=== PATIENT | female | born 1970 | race Caucasian/White ===

== ENCOUNTER 2019-12-12 07:33 | Outpatient (REF) | payer OTHER, SELFPAY ==
--- NOTE | 2019-12-12 | MM_ITS ---
EXAMINATION: MM DIAGNOSTIC DIGITAL BREAST TOMOSYNTHESIS, BILATERAL CLINICAL INFORMATION: Due for yearly. Probable benign nodule posterior medial right breast for follow-up. The lifetime risk of breast cancer based on the Tyrer-Cuzick Model is 8%. COMPARISON: Mammography: 06/12/2019, 11/23/2018, 10/24/2018 (BI-RADS 0), 04/17/2015; targeted right breast ultrasound 11/23/2018 TECHNIQUE: Digital breast tomosynthesis is performed in both the craniocaudal and mediolateral oblique views along with computer-aided detection (CAD). Synthesized 2D images are generated from the tomosynthesis. Additional views are provided: Left cleavage, left MLO. FINDINGS: The breasts are almost entirely fatty (ACR BI-RADS breast composition Category a). There are no significant masses, abnormal calcifications, or other abnormalities. There is no interval mass or developing density. The nodule for follow-up posterior medial right breast is stable. They will be reassessed again at next bilateral annual mammography include long-term surveillance. There are bilateral nipple piercings. The axilla and skin contours are unremarkable. Results are provided to the patient at time of visit by the technologist. IMPRESSION: There are no significant changes from prior study. The circumscribed nodule posterior medial right breast is stable. ASSESSMENT: BI-RADS 3: Probably Benign RECOMMENDATION: Diagnostic mammography at time of next annual exam, due in 12 months. This patient's information was entered into a reminder system with a target due date for their next mammogram.
== END 2019-12-12 07:34 | disposition home or self-care (01) ==
LOC: HO.MAMMO 07:33
PROVIDERS: PCP Internal Medicine; Visit Provider Internal Medicine
DX: N63.10 Unspecified lump in the right breast, unspecified quadrant (principal)
CPT/HCPCS: 77062; 77066; 78013

== ENCOUNTER 2021-10-30 11:30 | Outpatient (REF) | payer OTHER, SELFPAY ==
[2021-10-30 13:29] LABS: Influenza A PCR NEGATIVE (Negative); Influenza B PCR NEGATIVE (Negative); Resp Syncy Virus RNA Qual PCR NEGATIVE (Negative); SARS COV2 PCR INHOUSE POSITIVE (Negative)
== END 2021-10-30 11:31 | disposition home or self-care (01) ==
LOC: HO.LNP 11:30
PROVIDERS: Visit Provider Internal Medicine
DX: Z20.822 Contact with and (suspected) exposure to COVID-19 (principal); R09.89 Other specified symptoms and signs involving the circulatory and respiratory systems
CPT/HCPCS: 0241U

== ENCOUNTER 2022-09-09 09:45 | Outpatient (REF) | payer BC, SELFPAY ==
[2022-09-09 11:09] LABS: MANUAL DIFF FLAG NO
[2022-09-09 11:29] LABS: Basophils Absolute Auto 0.1 X10*3/uL (0.0-0.2); Basophils Percent Auto 0.5 % (0-2); Eosinophils Absolute Auto 0.1 X10*3/uL (0.0-0.4); Eosinophils Percent Auto 0.9 % (0-4); Hematocrit 32.7 % (37.0-47.0); Imm Gran Abs Auto 0.06 X10*3/uL (0.00-0.03); Imm Gran Pct Auto 0.5 % (0.0-0.4); Lymphocytes Percent Auto 23.9 % (20-40); Mean Corpuscular HGB Conc 27.5 g/dl (31.0-35.0); Mean Corpuscular Hemoglobin 14.6 pg (27.0-33.0); Monocytes Absolute Auto 0.6 X10*3/uL (0.1-1.2); Monocytes Percent Auto 4.7 % (2-11); NRBC Pct Auto 0.2 /100WBC (0.0-0.2); Neutrophils Absolute Auto 8.7 x10*3/uL (2.0-8.3); Neutrophils Percent Auto 69.5 % (45-73); Platelet Count 392 X10*3/uL (160-400); Red Blood Count 6.16 X10*6/uL (4.20-5.50); Red Cell Distribution Width 22.3 % (11.0-16.0); White Blood Count 12.6 X10*3/uL (4.8-10.8)
[2022-09-09 11:30] LABS: Mean Corpuscular Volume 53.1 fL (80.0-98.0)
== END 2022-09-09 09:46 | disposition home or self-care (01) ==
LOC: HO.HMGCLDS 09:45
PROVIDERS: PCP Internal Medicine; Visit Provider Internal Medicine
DX: Z00.00 Encounter for general adult medical examination without abnormal findings (principal); E11.9 Type 2 diabetes mellitus without complications; N92.4 Excessive bleeding in the premenopausal period
CPT/HCPCS: 36415; 80053; 82043; 83036; 83540; 84443; 85025

== ENCOUNTER 2022-10-08 09:48 | Outpatient (AMB) | payer BC, SELFPAY ==
--- NOTE | 2022-10-08 09:55 | A.OFFPC_ITS ---
Vital Signs 10/08/22 09:57 Height 5 ft 7 in Weight 304 lb 2 oz BMI 47.6 BP 124/84 Blood Pressure Location Rt brachial Position Sitting Pulse 89 Pulse Source Pulse Oximeter Pulse Oximetry (%) 97 Oxygen Delivery Method Room Air Intake Visit Reasons: 1m follow up Allergies pineapple Allergy (Verified 10/08/22 09:56) SOB throat closing metformin Adverse Reaction (Intermediate, Verified 10/08/22 09:56) Diarrhea enviormental Allergy (Unknown, Uncoded 09/09/22 08:14) rash iodine Allergy (Unknown, Uncoded 09/09/22 08:14) rash lactose Allergy (Unknown, Uncoded 09/09/22 08:14) diarrhea Medication List - Last Reconciled 10/08/22 by Hue Kiran MD blood sugar diagnostic (OneTouch Ultra Test strips) 1 QD blood-glucose meter (MOVLTouch Ultra2 Meter) As directed dapagliflozin propanediol (Farxiga) 5 mg PO DAILY lancets (OneTouch Delica Plus Lancet) test blood sugar once a day lisinopril 10 mg PO DAILY Tobacco use date assessed: 10/08/22 Dental Screening Dental Screen Date: 10/08/22 Did you have a dental visit in the last 12 months?: Yes Did you have a dental problem in the last 6 months where you did not have access to dental care?: No Was dental information given to patient?: No HPI 1m follow up 2 HPI Details Pi is for f/u DM2, poorly controlled. She reports FBG down to 200's from 400's. Pt denies polydypsia but reports polyuria. She tolerates Farxiga. DM teaching with nurse navigator. 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 How often do you have a drink containing alcohol?: Never 3. How often do you have six or more drinks on one occasion?: Never Total Score: 0 Score Reviewed/Action Taken: Yes JEWEL-7 AMB Questionnaire JEWEL-7 Date JEWEL - 7 assessed: 09/09/22 Source: Developed by Drs. Anival Olson, Ally Arnold, Randy salcedo nd colleagues, with an educational chucky from [employer]. Review of Systems Const All systems reviewed & are unremarkable except as noted in HPI and below Reports no additional complaints Eyes Reports no additional complaints ENT Reports no additional complaints Card Reports no additional complaints Resp Reports no additional complaints GI Reports no additional complaints Reports no additional complaints Physical exam (Primary Care) Vital Signs: Last Vital Signs Pulse 89 10/08/22 09:57 BP 124/84 10/08/22 09:57 Pulse Ox 97 10/08/22 09:57 Oxygen Delivery Method Room Air 10/08/22 09:57 BMI result Body Mass Index 47.6 Tobacco/Smoking Status: Tobacco use Status Tobacco use date assessed 10/08/22 10/08/22 09:57 Patient Tobacco Use Status Never used Tobacco 10/08/22 09:57 e-Cigarette/Vaping Use Never Used 10/08/22 09:57 Thrive Assessment: Date of Thrive Assessment Date Thrive assessed 09/09/22 10/08/22 09:57 Const General: no acute distress HENMT Head: Yes normal to inspection Ears: hearing grossly normal bilaterally Throat: Yes posterior oropharynx normal Neck Neck: Yes no lymphadenopathy and Yes supple Resp Effort & Inspection: normal respiratory effort Auscultation: clear to auscultation bilaterally Cardio Rhythm: regular rhythm Heart sounds: S1 normal heart sound present and S2 normal heart sound present GI Inspection: Yes normal to inspection Palpation (GI): Soft to palpation Auscultation: normal bowel sounds Assessment and Plan Assessment & Plan (1) Hypertension: Code(s): I10 - Essential (primary) hypertension Plan: cont Lisinopril (2) DM type 2 (diabetes mellitus, type 2): Code(s): E11.9 - Type 2 diabetes mellitus without complications Plan: ADA diet, increase Farxiga to 10 mg, cont BG monitoring, f/u in 1 month with labs before (3) Anemia: Comment: thalasemia and Iron def, referred to hematology Code(s): D64.9 - Anemia, unspecified Orders: Orders Comprehensive [place]. Panel Fast 1 Month D64.9 - Anemia, unspecified, E11.9 - Type 2 diabetes mellitus without complications Hemoglobin A1c 1 Month D64.9 - Anemia, unspecified, E11.9 - Type 2 diabetes mellitus without complications Lipid Panel 1 Month D64.9 - Anemia, unspecified, E11.9 - Type 2 diabetes mellitus without complications Complete Blood Count Auto Diff 1 Month D64.9 - Anemia, unspecified, E11.9 - Type 2 diabetes mellitus without complications IRON PROFILE 1 Month D64.9 - Anemia, unspecified Medications: New Farxiga (dapagliflozin propanediol) 10 mg PO DAILY 90 tabs 0RF NS Discontinued dapagliflozin propanediol (Farxiga) Discontinued Reason: Doctor's Order 5 mg PO DAILY 30 tabs 1RF Coding Level of Care Code Est Pt Level 4 (27956) Diagnoses Hypertension I10 DM type 2 (diabetes mellitus, type 2) E11.9 Anemia D64.9
[2022-10-08 09:57] VITALS: BP 124/84; PULSE 89; O2SAT 97; BMI 47.6
== END 2022-10-08 12:59 | disposition home or self-care (01) ==
PROVIDERS: PCP Internal Medicine; Visit Provider Internal Medicine
DX: I10 Essential (primary) hypertension (principal); E11.9 Type 2 diabetes mellitus without complications; D64.9 Anemia, unspecified
CPT/HCPCS: 99214

== ENCOUNTER → 2022-10-14 14:35 | Outpatient (BNV) | payer BC, SELFPAY | PROVIDERS: PCP Internal Medicine; Referring Provider Internal Medicine; Visit Provider Internal Medicine | DX: D50.0 Iron deficiency anemia secondary to blood loss (chronic) (principal); N92.0 Excessive and frequent menstruation with regular cycle | CPT/HCPCS: 99204 ==

== ENCOUNTER 2022-10-20 15:40 | Outpatient (REF) | payer BC, SELFPAY ==
[2022-10-21 12:47] LABS: CT PCR NOT DETECTED (Not Detect.); NG PCR NOT DETECTED (Not Detect.)
[2022-10-22 20:48] LABS: HPV mRNA E6/E7 rflx Not Detected (Not Detected)
== END 2022-10-20 15:41 | disposition home or self-care (01) ==
LOC: HO.LNP 15:40
PROVIDERS: PCP Internal Medicine; Visit Provider Obstetrics & Gynecology
DX: Z12.4 Encounter for screening for malignant neoplasm of cervix (principal); Z11.51 Encounter for screening for human papillomavirus (HPV); Z20.2 Contact with and (suspected) exposure to infections with a predominantly sexual mode of transmission; N93.9 Abnormal uterine and vaginal bleeding, unspecified
CPT/HCPCS: 0353U; 81025; 87624; 88142

== ENCOUNTER 2022-10-20 15:40 | Outpatient (AMB) | payer BC, SELFPAY ==
--- NOTE | 2022-10-20 15:44 | A.OFFVIS_ITS ---
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 Information Interpreted: non-clinical & clinical Cruller Maker Machine: Cruller Maker Machine Present Accompanied by: Self / Same As Patient Allergies pineapple Allergy (Verified 10/20/22 15:50) SOB throat closing metformin Adverse Reaction (Intermediate, Verified 10/20/22 15:50) Diarrhea enviormental Allergy (Unknown, Uncoded 10/20/22 15:50) rash iodine Allergy (Unknown, Uncoded 10/20/22 15:50) rash lactose Allergy (Unknown, Uncoded 10/20/22 15:50) diarrhea Is last menstrual period known: Yes Last menstrual period: 10/13/22 HPI HPI Comments History of Present Illness0 Details Presenting referred by PCP regarding irregular menstrual cycle associated with passage of blood clots and pelvic cramping. Last co testing was in 11/25 was negative. 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: House Patient Tobacco Use Status: Never used Tobacco e-Cigarette/Vaping Use: Never Used service: No Current occupational status: employed Cognitive needs: No Hearing needs: No Vision needs: Yes Female Reproductive History Menstrual Age of Menarche: 13 Duration of menses: 3-5 days Date of last menstrual period: 10/13/22 control method: permanent sterilization Review of Systems Const All systems reviewed & are unremarkable except as noted in HPI and below Card Reports as per HPI Resp Reports as per HPI GI Reports as per HPI and Reports no additional complaints Reports as per HPI Physical Exam Vital Signs: BMI result Body Mass Index 48.3 Const General: cooperative, healthy appearing and comfortable Chest Chest palpation & inspection: normal inspection of the chest and normal palpation of entire chest wall Breast/axilla inspection: normal inspection of the breasts and normal inspection of the axillae Breast/axilla palpation: normal palpation of the breasts, normal palpation of the axillae and no axillary lymphadenopathy Resp Effort & Inspection: normal respiratory effort Auscultation: clear to auscultation bilaterally Percussion: percussion normal Cardio Palpation: normal PMI Rate: regular rate Rhythm: regular rhythm Heart sounds: no murmurs and no rubs Peripheral pulses: Peripheral pulses 2+ throughout GI Inspection: Yes normal to inspection Palpation (GI): Soft to palpation, nontender, no guarding, not rigid and No hepatosplenomegaly present Percussion: Yes normal to percussion Auscultation: normal bowel sounds Rectal Exam - Female: deferred General: Yes bladder normal to palpation External Female Exam: No lesion Speculum Exam - Vagina: normal appearance of the vagina, normal palpation, normal vaginal discharge and not erythematous Speculum Exam - Cervix: normal appearance of the cervix and normal palpation Bimanual exam- vagina & uterus: normal bimanual exam, normal palpation, uterine size normal, bladder normal to palpation, consistency normal and normal palpation Bimanual Exam- Adnexa, other: normal adnexae, no masses and no tenderness Assessment & Plan Assessment & Plan (1) Abnormal uterine bleeding: Code(s): N93.9 - Abnormal uterine and vaginal bleeding, unspecified Plan: Co testing done, GC and chlamydia taken CBC, TSH, FSH/LH, HCG, screening mammogram and pelvic ultrasound ordered. Discussed with the patient the different causes of abnormal bleeding including thyroid disorders, uterine and ovarian pathology, endometrial hyperplasia, carcinoma and other potential causes. Discussed with the patient the work up including CBC (to r/o anemia), TSH, pelvic Ultrasound, endometrial biopsy to r/o endometrial pathology. All questions answered and the patient verbalized understanding. Instructed the patient to schedule an appointment for an endometrial biopsy in 2 weeks. Orders: Orders Follicle Stimulating Hormone Today N93.9 - Abnormal uterine and vaginal bleeding, unspecified HCG Quantitative Today N93.9 - Abnormal uterine and vaginal bleeding, unspecified Lutenizing Hormone Today N93.9 - Abnormal uterine and vaginal bleeding, unspecified Prolactin Today N93.9 - Abnormal uterine and vaginal bleeding, unspecified TSH reflex Free T4 Today N93.9 - Abnormal uterine and vaginal bleeding, unspecified Complete Blood Count no Diff Today N93.9 - Abnormal uterine and vaginal bleeding, unspecified MM screening mammo BI Today Z12.31 - Encounter for screening mammogram for malignant neoplasm of breast US pelvic and transvaginal Today N93.9 - Abnormal uterine and vaginal bleeding, unspecified Coding Level of Care Code New Pt Level 3 (85016) Diagnoses Abnormal uterine bleeding N93.9
[2022-10-20 15:47] VITALS: BP 120/70; BMI 48.3
== END 2022-10-20 16:18 | disposition home or self-care (01) ==
LOC: HO.HWS 15:40
PROVIDERS: PCP Internal Medicine; Visit Provider Obstetrics & Gynecology
DX: N93.9 Abnormal uterine and vaginal bleeding, unspecified (principal); Z32.02 Encounter for pregnancy test, result negative
CPT/HCPCS: 99203

== ENCOUNTER 2022-10-30 | Outpatient (REF) | payer BC, SELFPAY ==
--- NOTE | ~2022-10-30 | US_ITS ---
EXAMINATION: US PELVIS COMPLETE CLINICAL INFORMATION: Abnormal uterine and vaginal bleeding; the last menstrual period was 2 weeks prior. COMPARISON: None. TECHNIQUE: Transabdominal and transvaginal imaging were performed. Imaging is limited by body habitus. FINDINGS: The uterus is of normal size and echogenicity, measuring 12.3 x 5.9 x 5.8 cm. The uterus is anteverted and anteflexed. An irregular, heterogeneous endometrium is identified, measuring 3.3 cm. A 2.6 x 2.2 x 2.7 cm polyp is seen, with internal vascularity. Nabothian cysts are seen within the cervix FIBROIDS: There are 2 fibroids seen. 1. Location: Upper rightward body, myometrial. Size: 1.2 x 1.1 x 1.3 cm. Fibroid characteristics: Heterogeneously hypoechoic. 2. Location: Upper leftward body, myometrial. Size: 1.7 x 1.5 x 1.4 cm. Fibroid characteristics: Heterogeneous echotexture. The right ovary is nonvisualized. The left ovary measures 3.7 x 2.2 x 3.8 cm for a volume of 16.2 mL. The left ovary contains a 2.4 cm benign, simple cyst, for which no imaging follow-up is recommended. There is no pelvic free fluid. There is no adnexal mass. US/US pelvic and transvaginal IMPRESSION: 1. A 2.7 cm in maximal diameter endometrial polyp is seen. This could represent focal endometrial hyperplasia, a hyperplastic polyp, a subendometrial fibroid or other neoplasm. As well, there is marked endometrial stripe thickening to 3.3 cm. Gynecology evaluation management is recommended, with consideration for tissue sampling, if clinically appropriate. 2. There are uterine fibroids. 3. Nabothian cysts are seen within the cervix. 4. The right ovary is not visualized.
[2022-10-30 16:54] LABS: Estimated Average Glucose 246 mg/dL; Hemoglobin A1c % 10.2 % (<6.0)
[2022-10-30 16:59] LABS: Basophils Percent Auto 0.3 % (0-2); Eosinophils Absolute Auto 0.1 X10*3/uL (0.0-0.4); Eosinophils Percent Auto 0.7 % (0-4); Hematocrit 32.8 % (37.0-47.0); Imm Gran Abs Auto 0.03 X10*3/uL (0.00-0.03); Imm Gran Pct Auto 0.3 % (0.0-0.4); Lymphocytes Absolute Auto 2.7 X10*3/uL (1.2-4.9); Lymphocytes Percent Auto 22.9 % (20-40); MANUAL DIFF FLAG SCAN; Mean Corpuscular HGB Conc 27.4 g/dl (31.0-35.0); Mean Corpuscular Hemoglobin 14.5 pg (27.0-33.0); Monocytes Absolute Auto 0.6 X10*3/uL (0.1-1.2); Monocytes Percent Auto 5.2 % (2-11); NRBC Pct Auto 0.3 /100WBC (0.0-0.2); Neutrophils Absolute Auto 8.3 x10*3/uL (2.0-8.3); Neutrophils Percent Auto 70.6 % (45-73); Platelet Count 424 X10*3/uL (160-400); Red Cell Distribution Width 24.2 % (11.0-16.0); SCAN SMEAR FLAG 1; White Blood Count 11.7 X10*3/uL (4.8-10.8)
[2022-10-30 17:02] LABS: Alanine Aminotransferase 15 U/L (0-31); Albumin Level 3.9 g/dL (3.5-5.0); Alkaline Phosphatase 97 U/L (39-117); Anion Gap 13 (12-20); Aspartate Amino Transferase 10 U/L (5-31); Bilirubin Total 0.3 mg/dL (0.0-1.0); Blood Urea Nitrogen 12 mg/dL (9-16); Calcium 9.4 mg/dL (8.4-10.2); Carbon Dioxide 25 mmol/L (22-29); Chloride 104 mmol/L (96-108); Cholesterol 166 mg/dL (<200); Estimated Glomerular Filt Rate > 60; Glucose Fasting 265 mg/dL (60-99); HDL Cholesterol 44 mg/dL (>40); Iron 13 mcg/dL (30-160); LDL Cholesterol Calculated 89 mg/dL (<100); Mean Corpuscular Volume 52.9 fL (80.0-98.0); PLT ABN DIST 1; Percent Iron Saturation 4 % (15-50); Potassium 3.8 mmol/L (3.3-5.1); Sodium 138 mmol/L (135-145); Total Iron Binding Capacity 330 mcg/dL (228-428); Total Protein 7.7 g/dL (6.5-8.0); Triglycerides 167 mg/dL (<150); Unsaturated Iron Binding 317 ug/dL
[2022-10-30 17:42] LABS: HCG Quantitative < 2 mIU/mL; TSH reflex Free T4 1.36 uIU/mL (0.32-4.0)
[2022-10-30 17:45] LABS: SLIDE REVIEW VERIFIED
[2022-10-31 11:39] LABS: Follicle Stimulating Hormone 15.7 mIU/mL
== END 2022-10-30 00:01 | disposition home or self-care (01) ==
LOC: HO.US
PROVIDERS: PCP Internal Medicine; Visit Provider Obstetrics & Gynecology
DX: N93.9 Abnormal uterine and vaginal bleeding, unspecified (principal); D64.9 Anemia, unspecified; E11.9 Type 2 diabetes mellitus without complications
CPT/HCPCS: 36415; 76830; 76856; 80053; 80061; 83001; 83002; 83036; 83540; 84146; 84443; 84702; 85025

== ENCOUNTER 2022-11-11 16:05 | Outpatient (AMB) | payer BC, SELFPAY ==
--- NOTE | 2022-11-11 16:05 | A.OFFVIS_ITS ---
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: No Information Interpreted: non-clinical & clinical Party Plan Sales Agent: Party Plan Sales Agent Present Accompanied by: Daughter Allergies pineapple Allergy (Verified 11/11/22 16:10) SOB throat closing metformin Adverse Reaction (Intermediate, Verified 11/11/22 16:10) Diarrhea enviormental Allergy (Unknown, Uncoded 11/11/22 16:10) rash iodine Allergy (Unknown, Uncoded 11/11/22 16:10) rash lactose Allergy (Unknown, Uncoded 11/11/22 16:10) diarrhea Is last menstrual period known: Yes Last menstrual period: 01/04/20 Post menopausal: Yes Patient : No Do you need a note to return to daycare/school/sports/work: Yes (for surgery on wednesday) HPI HPI Comments History of Present Illness Details Presenting to discuss the result of the pelvic ultrasound which showed the following: The uterus is of normal size and echogenicity, measuring 12.3 x 5.9 x 5.8 cm. The uterus is anteverted and anteflexed. An irregular, heterogeneous endometrium is identified, measuring 3.3 cm. A 2.6 x 2.2 x 2.7 cm polyp is seen, with internal vascularity. Nabothian cysts are seen within the cervix FIBROIDS: There are 2 fibroids seen. ?1. Location: Upper rightward body, myometrial. ?? ? Size: 1.2 x 1.1 x 1.3 cm. ?? ? Fibroid characteristics: Heterogeneously hypoechoic. ?2. Location: Upper leftward body, myometrial. ?? ? Size: 1.7 x 1.5 x 1.4 cm. ?? ? Fibroid characteristics: Heterogeneous echotexture. The right ovary is nonvisualized. The left ovary measures 3.7 x 2.2 x 3.8 cm for a volume of 16.2 mL. The left ovary contains a 2.4 cm benign, simple cyst, for which no imaging follow-up is recommended. There is no pelvic free fluid. There is no adnexal mass. 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: House Patient Tobacco Use Status: Never used Tobacco e-Cigarette/Vaping Use: Never Used service: No Current occupational status: employed Cognitive needs: No Hearing needs: No Vision needs: Yes Female Reproductive History Menstrual Age of Menarche: 13 Date of last menstrual period: 01/04/20 Total pregnancies: 2 Full term: 2 Review of Systems Card Reports as per HPI and Reports no additional complaints Resp Reports as per HPI and Reports no additional complaints GI Reports as per HPI and Reports no additional complaints Reports as per HPI Physical Exam Vital Signs: BMI result Body Mass Index 48.3 Const General: cooperative, healthy appearing and comfortable Chest Chest palpation & inspection: normal inspection of the chest and normal palpation of entire chest wall Breast/axilla inspection: normal inspection of the breasts and normal inspection of the axillae Breast/axilla palpation: normal palpation of the breasts, normal palpation of the axillae and no axillary lymphadenopathy Resp Effort & Inspection: normal respiratory effort Auscultation: clear to auscultation bilaterally Percussion: percussion normal Cardio Palpation: normal PMI Rate: regular rate Rhythm: regular rhythm Heart sounds: no murmurs and no rubs Peripheral pulses: Peripheral pulses 2+ throughout GI Inspection: Yes normal to inspection Palpation (GI): Soft to palpation, nontender, no guarding, not rigid and No hepatosplenomegaly present Percussion: Yes normal to percussion Auscultation: normal bowel sounds Rectal Exam - Female: deferred Assessment & Plan Assessment & Plan (1) Abnormal uterine bleeding: Comment: Endometrial polyp by ultrasound Code(s): N93.9 - Abnormal uterine and vaginal bleeding, unspecified Plan: Discussed the patient the finding of ultrasound including endometrial polyp, recommended hysteroscopy D&C possible polypectomy/myomectomy. Discussed with the patient the procedure , all benefits and risks including but not limited to inability to complete the procedure , bleeding, infection, possible need for blood transfusion with all its risk ( HIV,syphilis, Hepatitis, anaphylaxis shock, others..), injury to bladder, rectum, possible need for laparoscopy/laparotomy or hysterectomy. The patient verbalized understanding and signed the consent. Instructions given the patient to schedule a 2 week postoperative appointment Coding Level of Care Code Est Pt Level 3 (56945) Diagnoses Abnormal uterine bleeding N93.9
[2022-11-11 16:08] VITALS: BP 150/80; BMI 48.3
== END 2022-11-11 16:26 | disposition home or self-care (01) ==
PROVIDERS: PCP Internal Medicine; Visit Provider Obstetrics & Gynecology
DX: N93.9 Abnormal uterine and vaginal bleeding, unspecified (principal)
CPT/HCPCS: 99213

== ENCOUNTER → 2022-11-11 16:05 | Outpatient (BNVA) | payer BC, SELFPAY | PROVIDERS: PCP Internal Medicine; Visit Provider Obstetrics & Gynecology ==

== ENCOUNTER 2022-11-24 08:20 | Outpatient (REF) | payer BC, SELFPAY ==
--- NOTE | ~2022-11-24 | MM_ITS ---
EXAMINATION: MM SCREENING DIGITAL BREAST TOMOSYNTHESIS, BILATERAL CLINICAL INFORMATION: Screening. Asymptomatic. COMPARISON: Mammography: This study is compared with prior exams dating back to 2019. TECHNIQUE: Digital breast tomosynthesis is performed in both the craniocaudal and mediolateral oblique views along with computer-aided detection (CAD). Synthesized 2D images are generated from the tomosynthesis. FINDINGS: The breasts are almost entirely fatty (ACR BI-RADS breast composition Category a). The patient has bilateral nipple rings. There are no significant masses, abnormal calcifications, or other abnormalities. MM/MM tomosynthesis screening BI IMPRESSION: No mammographic evidence of malignancy. ASSESSMENT: BI-RADS BI-RADS 1 - Negative RECOMMENDATION: Routine annual mammography screening. 1 year F/U This examination should not preclude the clinical evaluation of a suspicious palpable abnormality. This patient's information was entered into a reminder system with a target due date for their next mammogram.
== END 2022-11-24 08:21 | disposition home or self-care (01) ==
LOC: HO.MAMMO 08:20
PROVIDERS: PCP Internal Medicine; Visit Provider Obstetrics & Gynecology
DX: Z12.31 Encounter for screening mammogram for malignant neoplasm of breast (principal)
CPT/HCPCS: 77063; 77067

== ENCOUNTER → 2022-11-24 08:30 | Outpatient (BNV) | payer BC, SELFPAY | PROVIDERS: PCP Internal Medicine; Visit Provider Radiology Diagnostic Radiology | DX: Z12.31 Encounter for screening mammogram for malignant neoplasm of breast (principal) | CPT/HCPCS: 77063; 77067 ==

== ENCOUNTER 2022-11-27 06:12 | Day surgery (SDC) | payer BC, SELFPAY ==
[2022-11-25 06:57] VITALS: BMI 48.2
--- NOTE | 2022-11-26 08:47 | P.CONAN_ITS ---
Documented by User: Rosaura Betancourt NP 11/26/22 08:49 HPI - Anesthesia Eval Consult details Narrative: 52yo F for D&C Hysteroscopy,poss myomectomy,poss polypectomy, PMFSH Active Problems Active Problems: All Active Problems (Updated 11/11/22 @ 16:13 by Tevin Fish MD) Abnormal uterine bleeding (Acute) Adverse effect of COVID-19 vaccine (Acute) COVID-19 virus infection (Acute) DM type 2 (diabetes mellitus, type 2) (Acute) Annual physical exam (Acute) DJD (degenerative joint disease), lumbosacral (Acute) Menorrhagia, premenopausal (Acute) Hypertension (Acute) Family history of breast cancer (Acute) Anemia (Acute) Obesity (Acute) Past Medical History Medical History Hypertension DM type 2 (diabetes mellitus, type 2) Heart murmur Obesity Anemia DJD (degenerative joint disease), lumbosacral Family History Family History Father Heart attack Diabetes Hypertension Kidney disease Mother Breast cancer Hypertension Surgical History Surgical History History of tonsillectomy History of tubal ligation Social History Household Members: Spouse and Children 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:: , 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 Tobacco Use Status: Never used Tobacco e-Cigarette/Vaping Use: Never Used service: No Current occupational status: employed Cognitive needs: No Hearing needs: No Vision needs: Yes Meds Allergies Allergy/AdvReac Type Severity Reaction Status Date / Time pineapple Allergy Severe SOB throat Verified 01/08/23 14:58 closing metformin AdvReac Intermediate Diarrhea Verified 01/08/23 14:58 enviormental Allergy Unknown rash Uncoded 01/08/23 14:58 iodine Allergy Unknown rash Uncoded 01/08/23 14:58 lactose Allergy Unknown diarrhea Uncoded 01/08/23 14:58 Exam Exam Date and Time: November 26, 2022 0847 Height,Weight and Vital Signs: Height 5 ft 7 in Weight 139.706 kg Pertinent Lab Results Pertinent Lab Results: Laboratory Tests 10/30/22 16:39 WBC 11.7 H Hgb 9.0 L Hct 32.8 L Plt Count 424 H Sodium 138 Potassium 3.8 Chloride 104 Carbon Dioxide 25 BUN 12 Creatinine 0.80 Assessment and Plan Assessment Anesthesia Assessment: Chart Reviewed Documented by User: Werner Barakat MD 01/28/23 19:33 PMF Past Medical History Medical History Hypertension DM type 2 (diabetes mellitus, type 2) Heart murmur Obesity Anemia DJD (degenerative joint disease), lumbosacral Family History Family History Father Heart attack Diabetes Hypertension Kidney disease Mother Breast cancer Hypertension Family history of problems with anesthesia: No Surgical History Surgical History History of tonsillectomy History of tubal ligation History of Problems with Anesthesia: No Social History Household Members: Spouse and Children 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:: , 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 Tobacco Use Status: Never used Tobacco e-Cigarette/Vaping Use: Never Used service: No Current occupational status: employed Cognitive needs: No Hearing needs: No Vision needs: Yes Meds Allergies Allergy/AdvReac Type Severity Reaction Status Date / Time pineapple Allergy Severe SOB throat Verified 01/08/23 14:58 closing metformin AdvReac Intermediate Diarrhea Verified 01/08/23 14:58 enviormental Allergy Unknown rash Uncoded 01/08/23 14:58 iodine Allergy Unknown rash Uncoded 01/08/23 14:58 lactose Allergy Unknown diarrhea Uncoded 01/08/23 14:58 Exam Airway Mallampati Class: III Neck ROM: Full Loose/Missing/Broken Teeth: Yes Assessment and Plan Assessment Anesthesia Assessment: Anesthesia Plan Discussed Final Anesthetic Review Family History of Problems with Anesthesia: No History of Problems with Anesthesia: No NPO: Yes ASA Class: III Final Preanesthetic Review: Meds/Allgs Chart Reviewed, Consent Obtained/Reviewed and Anes Risks/Benef Reviewed Patient Risk: Intermediate Procedure Risk: Intermediate Anesthetic Plan Anesthetic Plan: GA and Agree w/ Assess. and Plan Disposition: Standard PACU
[2022-11-27] VITALS (7 sets, daily range): BP systolic 134–163; BP diastolic 74–94; PULSE 77–95; RESP 16–18; TEMP 36.4–36.9; O2SAT 97–100; BMI 47.5
[2022-11-27 06:35] LABS: UPreg QC Valid YES; Urine Pregnancy NEGATIVE (NEGATIVE)
[2022-11-27 06:45] LABS: Glucose, Whole Blood 210 mg/dL (60-115)
[2022-11-27] MEDS: Lactated Ringers 1,000 ML 100 ML IVCONT (06:52)
--- NOTE | 2022-11-27 07:52 | MHC.SHP ---
Pre-Procedural Eval Section A Date of Service: 11/27/22 The patient is an INPATIENT: No Changes since office visit: No Cold of Flu in the past 2 weeks, No New Medical Problems, No Changes in Medication and No Patient answered all questions The History & Physical has been completed within 30 days and I have reviewed it.: Yes Section B Chief Complaint: Abnormal uterine and vaginal bleeding, unspecified Allergies: Allergies Allergy/AdvReac Type Severity Reaction Status Date / Time pineapple Allergy Severe SOB throat Verified 11/27/22 06:36 closing metformin AdvReac Intermediate Diarrhea Verified 11/27/22 06:36 enviormental Allergy Unknown rash Uncoded 11/27/22 06:36 iodine Allergy Unknown rash Uncoded 11/27/22 06:36 lactose Allergy Unknown diarrhea Uncoded 11/27/22 06:36 Plan Diagnosis/Plan: Unchanged I have reviewed the history and physical and performed a pertinent physical examination on my patient. No changes have occurred unless specified. Time Spent With Patient Time: Total time managing care of this patient today ____ minutes.
--- NOTE | 2022-11-27 07:57 | PC.NURSE ---
Patient in preop wearing two nipple piercings and one vaginal piercing that per her are unable to be removed. Dr. Fish made aware. Concerns raised of having piercing so close to cautery (if needed). Per patient, it is a ring with a ball on the outer labia, patients tried with pliers and couldn't remove it. Patient doesn't care if ring is damaged or discarded. Jewelry waiver signed, and ED Educator Avani to come and attempt cutting it off. Avani escorted to OR1 at beginning of case, as requested.
--- NOTE | 2022-11-27 08:42 | P.BOP_ITS ---
Brief Operative Note Date of Service: 11/27/22 Pre-op diagnosis: Abnormal uterine bleeding, 2.7 cm endometrial polyp by ultrasound Post-op diagnosis: same (Endometrial mass) Procedure: Hysteroscopy D&C, partial excision/biopsy of a large endometrial mass Surgeon: Tevin Fish MD Anesthesia: GLMA Was an Solutions Developer used for this Procedure?: No Estimated blood loss (mL): 0 Pathology: other (Endometrial Scrapping. Endometrial mass biopsy/partial excision) Condition: stable Disposition: PACU
--- NOTE | 2022-11-27 08:42 | W.PM.OPN ---
Operative Note Operative Note Date of Service: 11/27/22 Narrative: Preop Diagnosis: Abnormal uterine bleeding, 2.7 cm Endometrial polyp by US Operation: Diagnostic Hysteroscopy, Dilataion & Curettage and biopsy/partial excision of large endometrial mass Post Op Diagnosis: Large endometrial mass QBL: Minimal Anesthesia: GLMA Surgeon: Tevin Fish MD Radiology Transporter: None Complication: None Pathology: Endometrial Scrapings, biopsy/partial excision of large endometrial mass Procedure: The patient was put in the dorsal lithotomy position, scrubbed, and draped in the usual manner. A sterile speculum was inserted in the patient's vagina. The anterior lip of the cervix was grasped with a single tooth tenaculum. The cervix was dilated up to 5 mm, then the scope was inserted in the patient's uterus. Inspection revealed a large endometrial mass. Partial excision/biopsy the large endometrial mass was done using Myosure Reach device; it was introduced through the operative channel and partial excision/biopsy was done with no complications. The scope was then taken out from the uterine cavity, sharp curettings was carried on with moderate amount of tissues retrieved. At the end of the procedure, all instruments were taken out of the patient uterine and vaginal cavity. The single tooth tenaculum was removed and homeostasis was assured using pressure,. The patient tolerated the procedure well and was transferred to the PACU in a stable condition.
== END 2022-11-27 10:05 | disposition home or self-care (01) ==
PROVIDERS: PCP Internal Medicine; Visit Provider Obstetrics & Gynecology
PROC: 0UDB8ZZ Extraction of Endometrium, Via Natural or Artificial Opening Endoscopic (ICD-10-PCS; CPT 58558; principal; 2022-11-27 07:30)
DX: N93.9 Abnormal uterine and vaginal bleeding, unspecified (principal); N84.0 Polyp of corpus uteri; D64.9 Anemia, unspecified; E11.9 Type 2 diabetes mellitus without complications; I10 Essential (primary) hypertension; E66.9 Obesity, unspecified; Z68.42 Body mass index [BMI] 45.0-49.9, adult; Z79.899 Other long term (current) drug therapy; Z88.8 Allergy status to other drugs, medicaments and biological substances; Z91.041 Radiographic dye allergy status; Z98.51 Tubal ligation status
CPT/HCPCS: 58558; 81025; 82947; 88305; 88342; J2250; J3010

== ENCOUNTER → 2022-11-27 06:12 | Outpatient (BNV) | payer BC, SELFPAY | PROVIDERS: PCP Internal Medicine; Visit Provider Obstetrics & Gynecology | DX: N93.9 Abnormal uterine and vaginal bleeding, unspecified (principal) | CPT/HCPCS: 58558 ==

== ENCOUNTER 2022-12-16 15:12 | Outpatient (AMB) | payer BC, SELFPAY ==
--- NOTE | 2022-12-16 15:20 | MHC.OFFVIS ---
Intake Vital Signs 12/16/22 15:23 Height 5 ft 7 in Weight 308 lb BMI 48.2 BP 130/80 Intake Visit Reasons: post op Ethnic Studies Professor Required: No Information Interpreted: non-clinical & clinical Accompanied by: Self / Same As Patient Allergies pineapple Allergy (Severe, Verified 12/16/22 15:24) SOB throat closing metformin Adverse Reaction (Intermediate, Verified 12/16/22 15:24) Diarrhea enviormental Allergy (Unknown, Uncoded 12/16/22 15:24) rash iodine Allergy (Unknown, Uncoded 12/16/22 15:24) rash lactose Allergy (Unknown, Uncoded 12/16/22 15:24) diarrhea Post menopausal: Yes HPI HPI Comments History of Present Illness Details The patient is presenting post hysteroscopy D&C, partial excision of large endometrial soft tissue mass, with no complaints minimal vaginal bleeding no feverishness chills or abdominal pain. The pathology showed the following: A. 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 B. 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 Housing: House Patient Tobacco Use Status: Never used Tobacco e-Cigarette/Vaping Use: Never Used service: No Current occupational status: employed Cognitive needs: No Hearing needs: No Vision needs: Yes Female Reproductive History Menstrual Age of Menarche: 13 Review of Systems Const All systems reviewed & are unremarkable except as noted in HPI and below Reports as per HPI and Reports no additional complaints GI Reports no additional complaints Reports no additional complaints Physical Exam Vital Signs: Last Vital Signs BP 130/80 12/16/22 15:23 BMI result Body Mass Index 48.2 Assessment & Plan Assessment & Plan (1) EIN (endometrial intraepithelial neoplasia): Code(s): N85.02 - Endometrial intraepithelial neoplasia [EIN] Plan: Discussed with the patient the results the pathology and intraoperative findings, partial excision of endometrial mass showing EIN, recommended surgical management given her risk factors for endometrial carcinoma and residual endometrial mass with EIN. The patient was referred to [facility] for further management. Appointment scheduled on 12/29 at 14:00 at [facility], the patient is aware. All questions answered, the patient verbalized understand Coding Level of Care Code Est Pt Level 3 (11779) Diagnoses EIN (endometrial intraepithelial neoplasia) N85.02
[2022-12-16 15:23] VITALS: BP 130/80; BMI 48.2
== END 2022-12-16 16:24 | disposition home or self-care (01) ==
PROVIDERS: PCP Internal Medicine; Visit Provider Obstetrics & Gynecology
DX: N85.02 Endometrial intraepithelial neoplasia [EIN] (principal)
CPT/HCPCS: 99213

== ENCOUNTER → 2022-12-16 15:12 | Outpatient (BNVA) | payer BC, SELFPAY | PROVIDERS: PCP Internal Medicine; Visit Provider Obstetrics & Gynecology ==

== ENCOUNTER 2022-12-22 08:38 | Outpatient (AMB) | payer BC, SELFPAY ==
[2022-12-22 08:40] VITALS: BP 130/80; PULSE 90; O2SAT 98; BMI 46.4
--- NOTE | 2022-12-22 08:40 | A.OFFPC_ITS ---
Vital Signs 12/22/22 08:40 Height 5 ft 7 in Weight 296 lb BMI 46.4 BP 130/80 Blood Pressure Location Lt brachial Position Sitting Pulse 90 Pulse Source Pulse Oximeter Pulse Oximetry (%) 98 Oxygen Delivery Method Room Air Intake Visit Reasons: Followup diabetes Intake Note: Pt is here today for a follow up visit on DM. Allergies pineapple Allergy (Severe, Verified 12/22/22 08:45) SOB throat closing metformin Adverse Reaction (Intermediate, Verified 12/22/22 08:45) Diarrhea enviormental Allergy (Unknown, Uncoded 12/22/22 08:45) rash iodine Allergy (Unknown, Uncoded 12/22/22 08:45) rash lactose Allergy (Unknown, Uncoded 12/22/22 08:45) diarrhea Medication List - Last Reconciled 12/22/22 by Hue Kiran MD blood sugar diagnostic (IntroMapsTouch Ultra Test strips) 1 QD blood-glucose meter (PhotoShelteruch Ultra2 Meter) As directed Farxiga (dapagliflozin propanediol) 10 mg PO DAILY NS lancets (IntroMapsTouch Delica Plus Lancet) test blood sugar once a day lisinopril 10 mg PO DAILY Tobacco use date assessed: 12/22/22 HPI Followup diabetes HPI Details Patient presents for the follow-up of hypertension and type 2 diabetes. Patient could not get Farxiga for a month and just start taking it last week. She has not been monitoring her blood glucose. Patient reports some nausea but denies polyuria polydipsia. She was diagnosed with precancerous endometrial polyp and total hysterectomy is planned. Patient has an appointment with Oncology. Patient complains of 1 week of right foot dorsal pain. Pain is worse at the end of the day and patient reports swelling. She denies any trauma. Patient reports pain when walking. 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 Anival Olson, Ally Arnold, Randy Slaughter and colleagues, with an educational chucky from [employer]. Review of Systems Const All systems reviewed & are unremarkable except as noted in HPI and below Reports no additional complaints Eyes Reports no additional complaints ENT Reports no additional complaints Card Reports no additional complaints Resp Reports no additional complaints GI Reports no additional complaints Reports no additional complaints Physical exam (Primary Care) Vital Signs: Last Vital Signs Pulse 90 12/22/22 08:40 BP 130/80 12/22/22 08:40 Pulse Ox 98 12/22/22 08:40 Oxygen Delivery Method Room Air 12/22/22 08:40 BMI result Body Mass Index 46.4 Tobacco/Smoking Status: Tobacco use Status Tobacco use date assessed 12/22/22 12/22/22 08:47 Patient Tobacco Use Status Never used Tobacco 12/22/22 08:47 e-Cigarette/Vaping Use Never Used 12/22/22 08:47 Thrive Assessment: Date of Thrive Assessment Date Thrive assessed 09/09/22 12/22/22 08:47 Const General: no acute distress HENMT Mouth: Normal oral and palatal mucosa present Resp Effort & Inspection: normal respiratory effort Auscultation: clear to auscultation bilaterally Cardio Rhythm: regular rhythm Heart sounds: S1 normal heart sound present and S2 normal heart sound present Extrem Other: tenderness on the dorsum of right foot over 2 MTP joint General: Yes no clubbing, cyanosis or edema Assessment and Plan Assessment & Plan (1) Foot pain, right: Code(s): M79.671 - Pain in right foot Plan: Check x-ray and meloxicam 15 mg daily is prescribed (2) DM type 2 (diabetes mellitus, type 2): Code(s): E11.9 - Type 2 diabetes mellitus without complications Plan: FOR poorly controlled diabetes patient will continue Farxiga and 20 units of Basaglar will be started. Patient will start monitoring her blood glucose with Libre3 monitor she will follow-up in 1 week (3) EIN (endometrial intraepithelial neoplasia): Code(s): N85.02 - Endometrial intraepithelial neoplasia [EIN] Plan: Follow-up with oncology and plywood patcher Orders: Orders XR foot RT 2V Today M79.671 - Pain in right foot Medications: New insulin glargine (Basaglar KwikPen U-100 Insulin) 20 units (0.2 mL) subcut QPM 15 mL 1RF blood-glucose sensor (FreeStyle Vikki 3 Sensor device) As directed 2 ea 3RF pen needle, diabetic (BD Ultra-Fine Short Pen Needle) QD 100 ea 2RF meloxicam 15 mg PO DAILY 10 tabs 0RF Coding Level of Care Code Est Pt Level 4 (61390) Diagnoses Foot pain, right M79.671 DM type 2 (diabetes mellitus, type 2) E11.9 EIN (endometrial intraepithelial neoplasia) N85.02
== END 2022-12-22 09:18 | disposition home or self-care (01) ==
PROVIDERS: PCP Internal Medicine; Visit Provider Internal Medicine
DX: M79.671 Pain in right foot (principal); E11.9 Type 2 diabetes mellitus without complications; N85.02 Endometrial intraepithelial neoplasia [EIN]
CPT/HCPCS: 99214

== ENCOUNTER 2022-12-22 09:18 | Outpatient (REF) | payer BC, SELFPAY ==
--- NOTE | ~2022-12-22 | XR_ITS ---
EXAMINATION: XR FOOT, LEFT CLINICAL INFORMATION: Pain in left foot COMPARISON: None available. TECHNIQUE: AP, lateral, and oblique views of the left foot. FINDINGS: Small dorsal and plantar calcaneal spurs. Moderate degenerative changes first metatarsal-phalangeal joint with joint space narrowing and hypertrophic change. Toes are flexed, limiting evaluation. Advanced degenerative changes with possible prior fracture along the medial posterior aspect of the tarsal navicular difficult to fully image due to overlying bony structures. Tiny punctate ossific/calcific fragment inferomedial to the medial malleolus on limited views. Dedicated views of the ankle recommended for further evaluation. XR/XR foot LT min 3V IMPRESSION: Advanced degenerative changes with possible prior fracture along the medial posterior aspect of the tarsal navicular difficult to fully image due to overlying bony structures. Correlation with the clinical exam and possible CT scan or MRI recommended for further evaluation. Tiny punctate ossific/calcific fragment inferomedial to the medial malleolus on limited views. Dedicated views of the ankle recommended for further evaluation. This study was presented me today December 29, 2022 at 7:50 AM for interpretation. PSA staff will provide results to referring provider at this time.
== END 2022-12-22 09:19 | disposition home or self-care (01) ==
LOC: HO.HMGCX 09:18
PROVIDERS: PCP Internal Medicine; Visit Provider Internal Medicine
DX: M79.672 Pain in left foot (principal)
CPT/HCPCS: 73630

== ENCOUNTER 2022-12-31 07:44 | Outpatient (REF) | payer BC, SELFPAY ==
--- NOTE | ~2022-12-31 | XR_ITS ---
EXAMINATION: XR ANKLE, LEFT CLINICAL INFORMATION: Pain in left ankle and joints of left foot. COMPARISON: 12/22/2022 left foot. TECHNIQUE: AP, lateral, and mortise views of the left ankle. FINDINGS: Corticated 9 mm ossicle inferior to the lateral malleolus of indeterminate age and etiology. Small dorsal and plantar calcaneal spurs. Advanced degenerative changes along the proximal medial aspect of the tarsonavicular. Previously questioned possible prior fracture along the medial posterior aspect of the tarsal navicular remains difficult to fully image due to overlying bony structures. Redemonstration of tiny punctate ossific/calcific fragment inferomedial to the medial malleolus of indeterminate age and etiology. IMPRESSION 1. Advanced degenerative changes along the proximal medial aspect of the tarsal navicular. Previously questioned possible prior fracture along the medial posterior aspect of the tarsonavicular remains difficult to fully image due to overlying bony structures. 2. Corticated 9 mm ossicle inferior to the lateral malleolus of indeterminate age and etiology. 3. Redemonstration of tiny punctate ossific/calcific fragment inferomedial to the medial malleolus of indeterminate age and etiology. Correlation with the clinical exam and possible CT scan or MRI recommended for further evaluation.
[2022-12-31 11:49] LABS: MANUAL DIFF FLAG NO
[2022-12-31 11:57] LABS: Basophils Absolute Auto 0.1 X10*3/uL (0.0-0.2); Basophils Percent Auto 0.7 % (0-2); Eosinophils Absolute Auto 0.1 X10*3/uL (0.0-0.4); Eosinophils Percent Auto 1.2 % (0-4); Hematocrit 36.1 % (37.0-47.0); Hemoglobin 9.9 g/dl (12.0-16.0); Imm Gran Abs Auto 0.03 X10*3/uL (0.00-0.03); Imm Gran Pct Auto 0.4 % (0.0-0.4); Lymphocytes Absolute Auto 2.5 X10*3/uL (1.2-4.9); Lymphocytes Percent Auto 30.8 % (20-40); Mean Corpuscular HGB Conc 27.4 g/dl (31.0-35.0); Mean Corpuscular Hemoglobin 14.7 pg (27.0-33.0); Monocytes Absolute Auto 0.5 X10*3/uL (0.1-1.2); Monocytes Percent Auto 6.2 % (2-11); Neutrophils Percent Auto 60.7 % (45-73); Platelet Count 368 X10*3/uL (160-400); Red Blood Count 6.75 X10*6/uL (4.20-5.50); White Blood Count 8.2 X10*3/uL (4.8-10.8)
[2022-12-31 11:58] LABS: Mean Corpuscular Volume 53.5 fL (80.0-98.0)
[2022-12-31 12:03] LABS: Estimated Average Glucose 240 mg/dL
[2022-12-31 12:08] LABS: Alanine Aminotransferase 17 U/L (0-31); Albumin Level 4.1 g/dL (3.5-5.0); Alkaline Phosphatase 96 U/L (39-117); Anion Gap 13 (12-20); Aspartate Amino Transferase 14 U/L (5-31); Bilirubin Total 0.3 mg/dL (0.0-1.0); Blood Urea Nitrogen 11 mg/dL (9-16); Calcium 9.3 mg/dL (8.4-10.2); Carbon Dioxide 23 mmol/L (22-29); Chloride 105 mmol/L (96-108); Estimated Glomerular Filt Rate > 60; Glucose Fasting 188 mg/dL (60-99); Potassium 4.3 mmol/L (3.3-5.1); Sodium 137 mmol/L (135-145); Total Protein 8.1 g/dL (6.5-8.0)
== END 2022-12-31 07:45 | disposition home or self-care (01) ==
LOC: HO.HMGCX 07:44
PROVIDERS: PCP Internal Medicine; Visit Provider Internal Medicine
DX: M25.572 Pain in left ankle and joints of left foot (principal); I10 Essential (primary) hypertension; E11.9 Type 2 diabetes mellitus without complications
CPT/HCPCS: 36415; 73610; 80053; 83036; 85025

== ENCOUNTER 2022-12-31 13:49 | Outpatient (AMB) | payer BC, SELFPAY ==
[2022-12-31 13:57] VITALS: BP 126/74; PULSE 102; O2SAT 97; BMI 46.8
--- NOTE | 2022-12-31 13:57 | MHC.PC.OV ---
Vital Signs 12/31/22 13:57 Height 5 ft 7 in Weight 299 lb BMI 46.8 BP 126/74 Blood Pressure Location Lt brachial Position Sitting Pulse 102 H Pulse Source Pulse Oximeter Pulse Oximetry (%) 97 Oxygen Delivery Method Room Air Intake Visit Reasons: 1 week follow up Intake Note: Pt is here today for 1 week follow up visit. Allergies pineapple Allergy (Severe, Verified 12/22/22 08:45) SOB throat closing metformin Adverse Reaction (Intermediate, Verified 12/22/22 08:45) Diarrhea enviormental Allergy (Unknown, Uncoded 12/22/22 08:45) rash iodine Allergy (Unknown, Uncoded 12/22/22 08:45) rash lactose Allergy (Unknown, Uncoded 12/22/22 08:45) diarrhea Medication List - Last Reconciled 12/31/22 by Hue Kiran MD blood sugar diagnostic (OneTouch Ultra Test strips) 1 QD blood-glucose meter (OneTouch Ultra2 Meter) As directed blood-glucose sensor (Forensic LogicStyle Vikki 3 Sensor device) As directed Farxiga (dapagliflozin propanediol) 10 mg PO DAILY NS insulin glargine (Basaglar KwikPen U-100 Insulin) 20 units (0.2 mL) subcut QPM lancets (OneTouch Delica Plus Lancet) test blood sugar once a day lisinopril 10 mg PO DAILY meloxicam 15 mg PO DAILY pen needle, diabetic (BD Ultra-Fine Short Pen Needle) QD Tobacco use date assessed: 12/22/22 HPI 1 week follow up HPI Details Patient presents for the follow-up of poorly controlled type 2 diabetes. She has been taking 10 mg of Farxiga and reports fasting blood glucose between 160-200. Patient did not start insulin yet because cannot afford co-pay. She denies polyuria polydipsia. Hypertension is controlled on lisinopril. 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 Anival Olson, Ally Arnold, Randy Slaughter and colleagues, with an educational chucky from [employer]. Review of Systems Const All systems reviewed & are unremarkable except as noted in HPI and below Reports no additional complaints Eyes Reports no additional complaints ENT Reports no additional complaints Card Reports no additional complaints Resp Reports no additional complaints GI Reports no additional complaints Reports no additional complaints Physical exam (Primary Care) Vital Signs: Last Vital Signs Pulse 102 H 12/31/22 13:57 BP 126/74 12/31/22 13:57 Pulse Ox 97 12/31/22 13:57 Oxygen Delivery Method Room Air 12/31/22 13:57 BMI result Body Mass Index 46.8 Tobacco/Smoking Status: Tobacco use Status Tobacco use date assessed 12/22/22 12/31/22 13:57 Patient Tobacco Use Status Never used Tobacco 12/31/22 13:57 e-Cigarette/Vaping Use Never Used 12/31/22 13:57 Thrive Assessment: Date of Thrive Assessment Date Thrive assessed 09/09/22 12/31/22 13:57 HENMT Mouth: Normal oral and palatal mucosa present Throat: Yes posterior oropharynx normal Neck Neck: Yes supple Resp Effort & Inspection: normal respiratory effort Auscultation: clear to auscultation bilaterally Cardio Rhythm: regular rhythm Heart sounds: S1 normal heart sound present and S2 normal heart sound present GI Inspection: Yes normal to inspection Palpation (GI): Soft to palpation Assessment and Plan Assessment & Plan (1) DM type 2 (diabetes mellitus, type 2): Code(s): E11.9 - Type 2 diabetes mellitus without complications Plan: Continue Farxiga ADA diet increase physical activity discussed with the patient Ozempic 0.25 for the 1st month and increase to 0.5 mg will be started. Patient will not start insulin yet. She will follow-up in 1 month (2) EIN (endometrial intraepithelial neoplasia): Code(s): N85.02 - Endometrial intraepithelial neoplasia [EIN] Plan: Patient with a surgery in February (3) Left foot pain: Comment: 2 and 3rd metatarsal Code(s): M79.672 - Pain in left foot Plan: Patient will start meloxicam (4) Hypertension: Code(s): I10 - Essential (primary) hypertension Plan: Continue lisinopril Medications: New Ozempic (semaglutide) for 4 weeks, THEN 0.5 MG 0.25 mg (0.368 mL) subcut QWEEK 3 mL 3RF NS Coding Level of Care Code Est Pt Level 4 (81217) Diagnoses DM type 2 (diabetes mellitus, type 2) E11.9 EIN (endometrial intraepithelial neoplasia) N85.02 Left foot pain M79.672 Hypertension I10
== END 2022-12-31 15:02 | disposition home or self-care (01) ==
PROVIDERS: PCP Internal Medicine; Visit Provider Internal Medicine
DX: E11.9 Type 2 diabetes mellitus without complications (principal); N85.02 Endometrial intraepithelial neoplasia [EIN]; M79.672 Pain in left foot; I10 Essential (primary) hypertension
CPT/HCPCS: 99214

== ENCOUNTER 2023-01-08 14:45 | Outpatient (AMB) | payer BC, SELFPAY ==
[2023-01-08 14:47] VITALS: BP 144/80; BMI 46.6
--- NOTE | 2023-01-08 14:47 | MHC.OFFVIS ---
Intake Vital Signs 01/08/23 14:47 Height 5 ft 7 in Weight 297 lb 9.985 oz BMI 46.6 BP 144/80 H Intake Visit Reasons: Vaginal/labial swelling Intake Note: The patient agreed to use of a medical librarian during this encounter. 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: No Information Interpreted: non-clinical & clinical Retail Account Executive: Retail Account Executive Present (Vicki POWELL) Accompanied by: Self / Same As Patient Allergies pineapple Allergy (Severe, Verified 01/08/23 14:58) SOB throat closing metformin Adverse Reaction (Intermediate, Verified 01/08/23 14:58) Diarrhea enviormental Allergy (Unknown, Uncoded 01/08/23 14:58) rash iodine Allergy (Unknown, Uncoded 01/08/23 14:58) rash lactose Allergy (Unknown, Uncoded 01/08/23 14:58) diarrhea Post menopausal: Yes HPI HPI Comments History of Present Illness Details She presents with complaints of labial swelling and burning. Also reports burning with urination. Feels like there is a small scratch/tear on her labia. Has tried Monistat without relief. Has also tried Vagisil and triple abx cream. She uses ice packs to area at nighttime. Hx of D&C for endometrial mass on 12/16/22. Has had this irritation since procedure. Denies new soaps, detergents or abx use. Denies itching. 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 Housing: House Patient Tobacco Use Status: Never used Tobacco e-Cigarette/Vaping Use: Never Used service: No Current occupational status: employed Cognitive needs: No Hearing needs: No Vision needs: Yes Female Reproductive History Menstrual Age of Menarche: 13 Review of Systems Const All systems reviewed & are unremarkable except as noted in HPI and below Physical Exam Vital Signs: Last Vital Signs BP 144/80 H 01/08/23 14:47 BMI result Body Mass Index 46.6 Const General: cooperative, no acute distress, well developed and alert External Female Exam: normal external appearance, erythema (fungal rash on labial folds and vulva), externally tender, external swelling and other (yellow green discharge noted externally) Speculum Exam - Vagina: normal appearance of the vagina and erythematous (mild) Speculum Exam - Cervix: normal appearance of the cervix (difficult to visulalize due to discomfort with spec) Assessment & Plan Assessment & Plan (1) Labial irritation: Code(s): N90.89 - Other specified noninflammatory disorders of vulva and perineum Plan: Sx and exam are consistent with yeast infection. Directions given to patient for RX. Clean with water only, no soaps, oils, or fragrances to the area, dry well and wear cotton underwear.? No intimacy until sx resolve. Discontinue triple abx cream and Vagisil. Comfort measures: cool compresses and Tylenol prn. Contact office if sx do not resolve. RTO prn. (2) Labial swelling: Code(s): N94.89 - Other specified conditions associated with female genital organs and menstrual cycle Orders: Orders Bacterial Vaginosis Panel Today N89.8 - Other specified noninflammatory disorders of vagina Medications: New fluconazole may repeat dose in 3-5days if symptoms do not resolve 150 mg PO ONCE 1 day 2 tabs 1RF personal clotrimazole-betamethasone 1-0.05 % apply externally a thin coat to the area 1 appl topical BID 7 days 45 grams 0RF itching Coding Level of Care Code Est Pt Level 3 (27359) Diagnoses Labial irritation N90.89 Labial swelling N94.89
== END 2023-01-08 15:18 | disposition home or self-care (01) ==
PROVIDERS: PCP Internal Medicine; Visit Provider Advanced Practice Midwife
DX: N90.89 Other specified noninflammatory disorders of vulva and perineum (principal); N94.89 Other specified conditions associated with female genital organs and menstrual cycle
CPT/HCPCS: 99213

== ENCOUNTER 2023-01-08 14:45 | Outpatient (REF) | payer BC, SELFPAY ==
[2023-01-09 13:33] LABS: BV Int Neg Control Negative (Negative); BV Int Pos Control Positive (Positive)
== END 2023-01-08 14:46 | disposition home or self-care (01) ==
LOC: HO.LNP 14:45
PROVIDERS: PCP Internal Medicine; Visit Provider Advanced Practice Midwife
DX: N89.8 Other specified noninflammatory disorders of vagina (principal); N90.89 Other specified noninflammatory disorders of vulva and perineum; N94.89 Other specified conditions associated with female genital organs and menstrual cycle
CPT/HCPCS: 87480; 87510; 87660

== ENCOUNTER 2024-02-22 11:54 | Outpatient (REF) | payer OTHER, SELFPAY ==
--- NOTE | ~2024-02-22 | XR_ITS ---
EXAMINATION: XR RIGHT SHOULDER CLINICAL INFORMATION: Pain in right shoulder M25.511. COMPARISON: None available TECHNIQUE: AP external rotation, Grashey, scapular Y, and axillary views of the right shoulder. FINDINGS: There is mild acromioclavicular osteoarthritis. Glenohumeral joint is well preserved. No fracture. Alignment is anatomic. Soft tissues are normal with no abnormal calcifications. XR/XR shoulder RT min 2V IMPRESSION: Mild acromioclavicular osteoarthritis. Electronically signed by: Anival Brady MD 04/05/2024 12:36 PM EST
== END 2024-02-22 11:55 | disposition home or self-care (01) ==
LOC: HO.HMGCX 11:54
PROVIDERS: PCP Internal Medicine; Visit Provider Internal Medicine
DX: Z00.00 Encounter for general adult medical examination without abnormal findings (principal); M25.511 Pain in right shoulder; E11.9 Type 2 diabetes mellitus without complications; I10 Essential (primary) hypertension; E66.01 Morbid (severe) obesity due to excess calories; Z68.42 Body mass index [BMI] 45.0-49.9, adult; Z79.899 Other long term (current) drug therapy; Z90.710 Acquired absence of both cervix and uterus
CPT/HCPCS: 73030; 83036; 96127; 99396

== ENCOUNTER 2024-02-22 11:54 | Outpatient (AMB) | payer OTHER, SELFPAY ==
[2024-02-22 12:09] VITALS: BP 126/80; PULSE 94; O2SAT 98; BMI 47.0
--- NOTE | 2024-02-22 12:09 | MHC.PC.OV ---
Vital Signs 02/22/24 12:09 Height 5 ft 7 in Weight 300 lb BMI 47.0 BP 126/80 Blood Pressure Location Lt brachial Position Sitting Pulse 94 Pulse Source Pulse Oximeter Pulse Oximetry (%) 98 Oxygen Delivery Method Room Air Intake Visit Reasons: annual exam Intake Note: Pt is here today for PE. Allergies pineapple Allergy (Severe, Verified 02/22/24 12:15) SOB throat closing metformin Adverse Reaction (Intermediate, Verified 02/22/24 12:15) Diarrhea enviormental Allergy (Unknown, Uncoded 02/22/24 12:15) rash iodine Allergy (Unknown, Uncoded 02/22/24 12:15) rash lactose Allergy (Unknown, Uncoded 02/22/24 12:15) diarrhea Medication List - Last Reconciled 02/22/24 by Hue Kiran MD blood sugar diagnostic (OneTouch Ultra Test strips) 1 QD blood-glucose meter (ImpactGamesuch Ultra2 Meter) As directed blood-glucose sensor (NeuralieveStyle Vikki 3 Sensor device) As directed clotrimazole-betamethasone 1-0.05 % 1 appl topical BID 7 days fluconazole 150 mg PO ONCE 1 day insulin glargine (Basaglar KwikPen U-100 Insulin) 20 units (0.2 mL) subcut QPM Jardiance (empagliflozin) 10 mg PO DAILY NS lancets (OneTouch Delica Plus Lancet) test blood sugar once a day lisinopril 10 mg PO DAILY meloxicam 15 mg PO DAILY pen needle, diabetic (BD Ultra-Fine Short Pen Needle) QD Tobacco use date assessed: 02/22/24 Dental Screening Dental Screen Date: 02/22/24 Did you have a dental visit in the last 12 months?: Yes Did you have a dental problem in the last 6 months where you did not have access to dental care?: No Was dental information given to patient?: Patient has dentist HPI annual exam HPI Details Pt presents for PE. 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 1. Little interest or pleasure in doing things: several days 2. Feeling down, depressed, or hopeless: several days 3. Trouble falling or staying asleep, or sleeping too much: not at all 4. Feeling tired or having little energy: not at all 5. Poor appetite or overeating: not at all 6. Feeling bad about yourself - or that you are a failure or have let yourself or your family down: not at all 7. Trouble concentrating on things, such as reading the newspaper or watching television: not at all 8. Moving or speaking so slowly that other people could have noticed. Or the opposite - being so fidgety or restless that you have been moving around a lot more than usual: not at all 9. Thoughts that you would be better off or of hurting yourself in some way: not at all Total score: 2 Depression Screening Interpretation: Negative Depression Screening Done: Yes 95362 - PHQ-9 Billing: Yes Source: Developed by Drs. Anival Olson, Ally Arnold, Randy Slaughter and colleagues, with an educational chucky from [employer]. Thrive Questionnaire Date Thrive assessed: 02/22/24 I am a: Patient What is your living situation today?: I have a steady place to live Within the past 12 months, did the food you bought not last and you didn't have the money to get more?: Never true Within the past 12 months, did you worry whether your food would run out before you got money to buy more?: Never true Do you have trouble paying for medicines?: I choose not to answer this question Do you have trouble getting transportation to medical appointments?: No Do you have trouble paying your heating and electricity bill?: I choose not to answer this question Do you have trouble taking care of your child, family member or friend?: No Do you have trouble with day-to-day activities such as bathing, preparing meals, shopping, managing finances, etc.?: No Are you currently unemployed and looking for a job?: Yes Are you interested in more education?: I choose not to answer this question Please select the resources that you would like help with: Paying for medicine and Utilities Currently or been in a relationship where the following occur: No concerns reported THRIVE Score: 0 AUDIT C Alcohol Use Questionnaire (AUDIT-C) 1. How often do you have a drink containing alcohol?: Monthly or less 2. How many drinks containing alcohol do you have on a typical day when you are drinking?: 1 or 2 3. How often do you have six or more drinks on one occasion?: Never Total Score: 1 JEWEL-7 AMB Questionnaire JEWEL-7 Date JEWEL - 7 assessed: 02/22/24 Feeling nervous, anxious, or on edge: 1 = Several days Not being able to stop or control worryin = Not at all Worrying too much about different things: 0 = Not at all Trouble relaxin = Not at all Being so restless that it is hard to sit still: 0 = Not at all Becoming easily annoyed or irritable: 1 = Several days Feeling afraid as if something awful might happen: 0 = Not at all Total JEWEL-7 score (0-4 normal; 5-9 mild; 10-14 moderate; 15-21 severe): 2 Source: Developed by Drs. Anival Olson, Ally Arnold, Randy Slaughter and colleagues, with an educational chucky from [employer]. JEWEL-7 Assessment Billing JEWEL-7 Assessment Tool: JEWEL-7 Assessment 04150 Review of Systems Const All systems reviewed & are unremarkable except as noted in HPI and below Eyes Reports no additional complaints ENT Reports no additional complaints Card Reports no additional complaints Resp Reports no additional complaints GI Reports no additional complaints Reports no additional complaints Physical exam (Primary Care) Vital Signs: Last Vital Signs Pulse 94 02/22/24 12:09 BP 126/80 02/22/24 12:09 Pulse Ox 98 02/22/24 12:09 Oxygen Delivery Method Room Air 02/22/24 12:09 BMI result Body Mass Index 47.0 Tobacco/Smoking Status: Tobacco use Status Tobacco use date assessed 02/22/24 02/22/24 12:19 Patient Tobacco Use Status Never used Tobacco 02/22/24 12:10 e-Cigarette/Vaping Use Never Used 02/22/24 12:10 PHQ-9: PHQ-9 Score PHQ-9: Total score 2 02/22/24 12:19 Depression Screening Interpretation: Negative Thrive Assessment: Date of Thrive Assessment Date Thrive assessed 02/22/24 02/22/24 12:19 Currently or been in a relationship where the following occur: No concerns reported Const General: no acute distress HENMT Head: Yes normal to inspection Ears: hearing grossly normal bilaterally Face and sinus: Yes normal facial exam Mouth: Normal oral and palatal mucosa present Throat: Yes posterior oropharynx normal Eyes General: appearance normal, both eyes and all related structures Neck Neck: Yes no lymphadenopathy and Yes supple Resp Effort & Inspection: normal respiratory effort Auscultation: clear to auscultation bilaterally Cardio Rhythm: regular rhythm Heart sounds: S1 normal heart sound present and S2 normal heart sound present GI Inspection: Yes normal to inspection Palpation (GI): Soft to palpation Percussion: Yes normal to percussion Auscultation: normal bowel sounds Extrem Other: Decreased range of motion and anterior lateral aspect tenderness in the right shoulder no soft tissue swelling General: Yes no clubbing, cyanosis or edema Coding Level of Care Code Est Pt Prev Care 40-64y(09832) Diagnoses Shoulder pain, right M25.511 DM type 2 (diabetes mellitus, type 2) E11.9 EIN (endometrial intraepithelial neoplasia) N85.02 Annual physical exam Z00.00 Hypertension I10 Obesity E66.9 Additional Codes JEWEL-7 Assessment Billing - JEWEL-7 Assessment Tool: JEWEL-7 Assessment 55176 ([id number]) PHQ-9 - 15087 - PHQ-9 Billing: Yes ([id number]) Assessment & Plan Assessment & Plan (1) Shoulder pain, right: Code(s): M25.511 - Pain in right shoulder Category: Medical Plan: For chronic right shoulder pain obtain x-ray and referred to physical therapy (2) DM type 2 (diabetes mellitus, type 2): Comment: Patient could not tolerate metformin, caused a diarrhea Code(s): E11.9 - Type 2 diabetes mellitus without complications Category: Medical Plan: A1c is 12.1, Continue ADA diet increase physical activity weight loss discussed with the patient. Patient restarted Jardiance and metformin and will restart Ozempic at 0.25 mg weekly for the 1st month then increase to 0.5 mg weekly (3) EIN (endometrial intraepithelial neoplasia): Comment: s/p hysterectomy 02/2023 Carole, pt saw oncology, no need for f/u Code(s): N85.02 - Endometrial intraepithelial neoplasia [EIN] Category: Medical Plan: Follow-up with guillotine operator p.r.n. (4) Annual physical exam: Code(s): Z00.00 - Encounter for general adult medical examination without abnormal findings Category: Medical Plan: Well-balanced diet regular physical activity weight loss discussed with the patient. She will call to schedule mammogram and has an appointment with GI to discuss colonoscopy (5) Hypertension: Code(s): I10 - Essential (primary) hypertension Category: Medical Plan: Continue Lisinopril (6) Obesity: Code(s): E66.9 - Obesity, unspecified Category: Medical Plan: Weight loss discussed with the patient she will restart Ozempic. Follow-up in 3 months with a fasting labs before Orders: Orders Hemoglobin A1c 3 Months E11.9 - Type 2 diabetes mellitus without complications, I10 - Essential (primary) hypertension, Z00.00 - Encounter for general adult medical examination without abnormal findings Lipid Panel 3 Months E11.9 - Type 2 diabetes mellitus without complications, I10 - Essential (primary) hypertension, Z00.00 - Encounter for general adult medical examination without abnormal findings Microalbumin, Random (w Creat) 3 Months E11.9 - Type 2 diabetes mellitus without complications, I10 - Essential (primary) hypertension, Z00.00 - Encounter for general adult medical examination without abnormal findings XR shoulder RT min 2V Today M25.511 - Pain in right shoulder PT Evaluation and Treatment Today M25.511 - Pain in right shoulder Comprehensive Moran. Panel Fast 3 Months E11.9 - Type 2 diabetes mellitus without complications, I10 - Essential (primary) hypertension, Z00.00 - Encounter for general adult medical examination without abnormal findings Medications: New Ozempic (semaglutide) 0.25 mg (0.368 mL) subcut QWEEK 3 mL 1RF NS Discontinued insulin glargine (Basaglar KwikPen U-100 Insulin) Discontinued Reason: Doctor's Order 20 units (0.2 mL) subcut QPM 15 mL 1RF
== END 2024-02-22 13:00 | disposition home or self-care (01) ==
PROVIDERS: PCP Internal Medicine; Visit Provider Internal Medicine
DX: Z00.00 Encounter for general adult medical examination without abnormal findings (principal); E11.9 Type 2 diabetes mellitus without complications; Z68.42 Body mass index [BMI] 45.0-49.9, adult; M25.511 Pain in right shoulder; N85.02 Endometrial intraepithelial neoplasia [EIN]; E66.9 Obesity, unspecified; I10 Essential (primary) hypertension

== ENCOUNTER 2024-02-23 15:07 | Outpatient (AMB) | payer OTHER, SELFPAY ==
[2024-02-23 15:10] VITALS: BP 146/84; PULSE 108; O2SAT 96; BMI 46.7
--- NOTE | 2024-02-23 15:10 | A.OFFVIS_ITS ---
Vital Signs 02/23/24 15:10 Height 5 ft 7 in Weight 298 lb 1.039 oz BMI 46.7 BP 146/84 H Blood Pressure Location Rt brachial Position Sitting Pulse 108 H Pulse Source Pulse Oximeter Pulse Oximetry (%) 96 Oxygen Delivery Method Room Air Intake Visit Reasons: Colonoscopy screening Intake Note: NEW PATIENT Rosaura presents in office today for a scheduled colo scrn Prior hx of colo/egd? Initial/Routine per PCP Meds and Allergies reviewed? Y Any significant concerns or questions? Pharmacy verified? [facility] Important FMHx? 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 female with past medical history of anemia, obesity, hypertension, diabetes, endometrial intraepithelial neoplasia is here today for pre colonoscopy screening.? Patient was sent to us by her PCP.? This is her first colonoscopy screening.? Patient denies any gastrointestinal symptoms in the past or at present.? Patient reports maternal grandfather diagnosed with colorectal cancer. Patient was never formally diagnosed with sleep apnea, however she reports that she snores when she sleeps as well as she was told that she stops breathing. Denies history of difficulty with sedation or anesthesia in the past.? ? Denies any history of cardiac, renal, pulmonary, or hepatic disease.?? No history of infectious? diseases like hepatitis A, B, C, HIV or tuberculosis.? 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 Patient Tobacco Use Status: Never used Tobacco e-Cigarette/Vaping Use: Never Used service: No Current occupational status: employed Cognitive needs: No Hearing needs: No Vision needs: Yes Female Reproductive History Menstrual Age of Menarche: 13 Review of Systems Const Denies weight gain and Denies weight loss ENT Reports no additional complaints, Denies dysphagia and Denies odynophagia Card Reports no additional complaints Resp Reports no additional complaints GI Denies abdominal pain, Denies belching, Denies melena, Denies bloating, Denies change in bowel habits, Denies dysphagia, Denies excessive flatus, Denies dyspepsia, Denies heartburn, Denies diarrhea, Denies loose stools, Denies nausea, Denies odynophagia and Denies vomiting Musc Reports no additional complaints Neuro Reports no additional complaints Psych Reports no additional complaints Endo Reports no additional complaints Physical Exam Vital Signs: Last Vital Signs Pulse 108 H 02/23/24 15:10 BP 146/84 H 02/23/24 15:10 Pulse Ox 96 02/23/24 15:10 Oxygen Delivery Method Room Air 02/23/24 15:10 BMI result Body Mass Index 46.7 Const General: healthy appearing, no acute distress and well developed Nutritional Appearance: well nourished Orientation/consciousness: patient oriented x3 Resp Effort & Inspection: normal respiratory effort, able to speak in complete sentences, no tracheal deviation and symmetric chest movement Auscultation: clear to auscultation bilaterally Cardio Rate: regular rate GI Inspection: Yes normal to inspection and No distended Palpation (GI): Soft to palpation, not firm, nontender and No hepatosplenomegaly present Auscultation: normal bowel sounds General: Yes no CVA tenderness Back/Spine/Pelvis Back: no CVA tenderness Skin General skin exam: elasticity normal, turgor normal and dry skin Neuro General: patient oriented x3 Psych Appearance: grossly normal Mental Status: mental status grossly normal Assessment & Plan Assessment & Plan (1) Screen for colon cancer: Code(s): Z12.11 - Encounter for screening for malignant neoplasm of colon Plan Patient denies any GI, cardiac or respiratory symptoms.? Denies any issues with anesthesia in the past.? Possible sleep apnea recommended for patient to go for sleep study. Patient will speak to her PCP about testing. No history infectious diseases in the past or present.? Not on any anticoagulation therapy.? Family history of CRC.? Patient denies melena, hematochezia, unintentional weight loss or ribbon like stools.? Discussed at length the pre- procedure,? prep, diet & medications as well as what to expect prior, during and after the procedure.?? Stressed the importance of good bowel prep.? Recommended the use of Vaseline or Calmoseptine OTC & baby wipes with bowel movements to promote comfort.? ?Patient verbalizes understanding and agrees to plan of care.? She was given the opportunity to ask questions and all questions answered.? We will see her after the procedure.? Medications: New polyethylene glycol 3350 (Miralax) As directed by gastroenterology department at [facility] 238 grams PO ONCE 238 grams 0RF Z12.11 - Encounter for screening for malignant neoplasm of colon bisacodyl (Dulcolax (bisacodyl)) take 4 tabs at noon the day before your colonoscopy 20 mg (4 x 5 mg) PO ONCE 1 day 4 tabs 0RF Z12.11 - Encounter for screening for malignant neoplasm of colon Coding Level of Care Code New Pt Level 3 (42829) Diagnoses Screen for colon cancer Z12.11 Time Spent (min) 40 Comment 30 minutes spent with patient and additional 10 minutes spent reviewing her records
== END 2024-02-23 15:42 | disposition home or self-care (01) ==
PROVIDERS: PCP Internal Medicine; Visit Provider Nurse Practitioner Family
DX: Z12.11 Encounter for screening for malignant neoplasm of colon (principal); Z01.818 Encounter for other preprocedural examination
CPT/HCPCS: 99202

== ENCOUNTER → 2024-02-23 15:07 | Outpatient (BNVA) | payer OTHER, SELFPAY | PROVIDERS: PCP Internal Medicine; Visit Provider Nurse Practitioner Family | DX: Z12.11 Encounter for screening for malignant neoplasm of colon (principal) | CPT/HCPCS: 99202 ==

== ENCOUNTER 2024-05-12 11:54 | Outpatient (AMB) | payer OTHER, SELFPAY ==
--- NOTE | 2024-05-12 12:43 | MHC.OFFWIV ---
Intake Vital Signs 05/12/24 13:04 Height 5 ft 7 in Weight 298 lb BMI 46.7 BP 140/82 H Blood Pressure Location Lt brachial Position Sitting Pulse 93 Pulse Source Pulse Oximeter Temp 97.9 F Temp Source Oral Pulse Oximetry (%) 96 Oxygen Delivery Method Room Air Intake Visit Reasons: EP-stomach open wound Patient Tobacco Use Status: Never used Tobacco Allergies pineapple Allergy (Severe, Verified 05/12/24 13:02) SOB throat closing metformin Adverse Reaction (Intermediate, Verified 05/12/24 13:02) Diarrhea enviormental Allergy (Unknown, Uncoded 02/22/24 12:15) rash iodine Allergy (Unknown, Uncoded 02/22/24 12:15) rash lactose Allergy (Unknown, Uncoded 02/22/24 12:15) diarrhea Do you need a note to return to daycare/school/sports/work: Yes HPI HPI Comments History of Present Illness Details History of Present Illness - The patient is a 54-year-old female with a hx of DM2 presenting with open wounds on the lower left pannus. - She reports one ulcer (to the left in the pic below) has been on her abdomen for about a month, with two additional ulcers that have appeared more recently. - States bg's are usually in range or a little above, blood glucose this AM noted at 157 mg/dL. - The patient describes difficulty with viewing the wound area herself due to anatomical positioning of the wounds on her pannus, complicating personal management of dressing changes. - Past wound management involved use of band-aids and bacitracin. - Admits to pain but denies fevers or chills or the wounds weeping. Physical Exam General: Cooperative, healthy appearing, comfortable, no acute distress and well developed Orientation: Patient oriented x3 Limitations: No limitations Head: Normal to inspection Ears: Hearing grossly normal bilaterally Nose: Normal external nose present Face and sinus: Normal facial exam Eyes: Appearance normal, both eyes and all related structures Neck: Normal visual inspection and Yes full ROM Respiratory: Normal respiratory effort and able to speak in complete sentences. Skin: 3 ulcers, see below. no warmth noted, no discharge or weeping noted. 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: House Patient Tobacco Use Status: Never used Tobacco e-Cigarette/Vaping Use: Never Used service: No Current occupational status: employed Cognitive needs: No Hearing needs: No Vision needs: Yes Female Reproductive History Menstrual Age of Menarche: 13 Review of Systems Const All systems reviewed & are unremarkable except as noted in HPI and below Physical Exam Vital Signs: Last Vital Signs Temp 97.9 F 05/12/24 13:04 Pulse 93 05/12/24 13:04 BP 140/82 H 05/12/24 13:04 Pulse Ox 96 05/12/24 13:04 Oxygen Delivery Method Room Air 05/12/24 13:04 BMI result Body Mass Index 46.7 Assessment & Plan Assessment & Plan (1) Ulcer, skin, non-healing: Code(s): L98.499 - Non-pressure chronic ulcer of skin of other sites with unspecified severity Qualifiers: Non-pressure ulcer stage: with fat layer exposed Qualified Code(s): L98.492 - Non-pressure chronic ulcer of skin of other sites with fat layer exposed Plan: A structured approach to wound management will be enacted, comprising of Xeroform, non-adherent pads, Tegaderm dressing with bi-daily changes to ensure wound support and optimal healing. Applied the dressing. I advised keeping area clean and dry, wash with soap and water in between dressing changes. Transitioning to Aquaphor only when the wound condition improves and they have scabbed up. Supplies for home wound care are provided, and logistical support from the patient's daughter (who is a nurse) is arranged. Patent was educated on tight glycemic control being imperative to wound healing! If no improvement in wounds within the next week, please follow up with Dr. Kiran for further management. She is aware she may need to go to Wound Care. Patient was informed and verbally consented to the use of an ambient scribe for clinic note documentation during this visit. Coding Level of Care Code Est Pt Level 4 (96034) Diagnoses Chronic skin ulcer with fat layer exposed L98.492 Non-pressure ulcer stage: with fat layer exposed
[2024-05-12 13:04] VITALS: BP 140/82; PULSE 93; TEMP 36.6; O2SAT 96; BMI 46.7
== END 2024-05-12 13:57 | disposition home or self-care (01) ==
PROVIDERS: PCP Internal Medicine; Visit Provider Physician Assistant
DX: L98.492 Non-pressure chronic ulcer of skin of other sites with fat layer exposed (principal)

== ENCOUNTER → 2024-05-12 11:54 | Outpatient (BNVA) | payer OTHER, SELFPAY | PROVIDERS: PCP Internal Medicine; Visit Provider Physician Assistant | DX: L98.492 Non-pressure chronic ulcer of skin of other sites with fat layer exposed (principal) | CPT/HCPCS: 99212 ==

== ENCOUNTER 2024-05-27 09:39 | Outpatient (REF) | payer OTHER, SELFPAY ==
[2024-05-27 12:28] LABS: Rheumatoid Factor < 13.0 IU/mL (<15.0)
[2024-05-27 12:49] LABS: Estimated Average Glucose 258 mg/dL; Hemoglobin A1C 327.4196 umol/L; Hemoglobin A1c % 10.6 % (<6.0); Total Hemoglobin (HGBA1C) 3525.5128 umol/L
[2024-05-27 12:51] LABS: Alanine Aminotransferase 14 U/L (0-31); Alkaline Phosphatase 91 U/L (39-117); Anion Gap 12 (12-20); Aspartate Amino Transferase 15 U/L (5-31); Bilirubin Total 0.6 mg/dL (0.0-1.0); Blood Urea Nitrogen 10 mg/dL (9-16); Calcium 9.1 mg/dL (8.4-10.2); Carbon Dioxide 23 mmol/L (22-29); Chloride 107 mmol/L (96-108); Cholesterol 158 mg/dL (<200); Estimated Glomerular Filt Rate > 60; Glucose Fasting 133 mg/dL (60-99); HDL Cholesterol 45 mg/dL (>40); LDL Cholesterol Calculated 95 mg/dL (<100); Potassium 4.2 mmol/L (3.3-5.1); Sodium 138 mmol/L (135-145); Triglycerides 93 mg/dL (<150)
[2024-05-27 13:51] LABS: Creatinine Urine 59.22 mg/dL; Microalbum/Creatinine Ratio Ur 25.3 ug/mg cr (<30)
== END 2024-05-27 09:40 | disposition home or self-care (01) ==
LOC: HO.HMGCLDS 09:39
PROVIDERS: PCP Internal Medicine; Visit Provider Internal Medicine
DX: E11.9 Type 2 diabetes mellitus without complications (principal); M25.50 Pain in unspecified joint; I10 Essential (primary) hypertension; Z00.00 Encounter for general adult medical examination without abnormal findings
CPT/HCPCS: 36415; 80053; 80061; 82043; 82570; 83036; 86200; 86431

== ENCOUNTER 2024-06-01 13:50 | Outpatient (AMB) | payer OTHER, SELFPAY ==
[2024-06-01 13:52] VITALS: BP 120/78; PULSE 98; RESP 18; TEMP 36.7; O2SAT 98; BMI 45.6
--- NOTE | 2024-06-01 13:52 | A.OFFPC_ITS ---
Vital Signs 06/01/24 13:52 Height 5 ft 7 in Weight 291 lb BMI 45.6 BP 120/78 Blood Pressure Location Lt brachial Position Sitting Respiration 18 Pulse 98 Pulse Source Pulse Oximeter Temp 98.0 F Temp Source Oral Pulse Oximetry (%) 98 Oxygen Delivery Method Room Air Intake Visit Reasons: 3 months f/up Intake Note: Pt is here today for 3 months follow up visit. Allergies pineapple Allergy (Severe, Verified 06/01/24 13:58) SOB throat closing metformin Adverse Reaction (Intermediate, Verified 06/01/24 13:58) Diarrhea enviormental Allergy (Unknown, Uncoded 06/01/24 13:58) rash iodine Allergy (Unknown, Uncoded 06/01/24 13:58) rash lactose Allergy (Unknown, Uncoded 06/01/24 13:58) diarrhea Medication List - Last Reconciled 06/01/24 by Hue Kiran MD blood sugar diagnostic (OneTouch Ultra Test strips) Test blood sugar once a day blood-glucose meter ([employer] ExperienceTouch Ultra2 Meter) As directed blood-glucose sensor (DroneCastStyle Vikki 3 Sensor device) As directed Jardiance (empagliflozin) 10 mg PO DAILY NS lancets (OneTouch Delica Plus Lancet) test blood sugar once a day lisinopril 10 mg PO DAILY Ozempic (semaglutide) 0.25 mg (0.368 mL) subcut QWEEK NS pen needle, diabetic (BD Ultra-Fine Short Pen Needle) QD Tobacco use date assessed: 06/01/24 Dental Screening Dental Screen Date: 06/01/24 Did you have a dental visit in the last 12 months?: Yes Did you have a dental problem in the last 6 months where you did not have access to dental care?: No Was dental information given to patient?: Patient has dentist HPI 3 months f/up HPI Details Pt presents for f/u type 2 diabetes and hypertension. She reports better blood glucose readings down to 140s since started taking Ozempic. Patient lost 10 lb and reports decreased appetite occasionally constipation but no other significant side effects. Patient complains of chronic right shoulder pain worse when trying to reach overhead. 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 1. Little interest or pleasure in doing things: several days 2. Feeling down, depressed, or hopeless: several days 3. Trouble falling or staying asleep, or sleeping too much: not at all 4. Feeling tired or having little energy: several days 5. Poor appetite or overeating: several days 6. Feeling bad about yourself - or that you are a failure or have let yourself or your family down: several days 7. Trouble concentrating on things, such as reading the newspaper or watching television: not at all 8. Moving or speaking so slowly that other people could have noticed. Or the opposite - being so fidgety or restless that you have been moving around a lot more than usual: not at all 9. Thoughts that you would be better off or of hurting yourself in some way: not at all Total score: 5 Depression Screening Interpretation: Negative Depression Screening Done: Yes 30473 - PHQ-9 Billing: Yes Source: Developed by Drs. Anival Olson, Ally Arnold, Randy Slaughter and colleagues, with an educational chucky from [employer] Thrive Questionnaire Date Thrive assessed: 06/01/24 I am a: Patient What is your living situation today?: I have a steady place to live Within the past 12 months, did the food you bought not last and you didn't have the money to get more?: I choose not to answer this question Within the past 12 months, did you worry whether your food would run out before you got money to buy more?: I choose not to answer this question Do you have trouble paying for medicines?: I choose not to answer this question Do you have trouble getting transportation to medical appointments?: No Do you have trouble paying your heating and electricity bill?: I choose not to answer this question Do you have trouble taking care of your child, family member or friend?: No Do you have trouble with day-to-day activities such as bathing, preparing meals, shopping, managing finances, etc.?: No Are you currently unemployed and looking for a job?: No Are you interested in more education?: No Please select the resources that you would like help with: None Currently or been in a relationship where the following occur: No concerns reported THRIVE Score: 0 AUDIT C Alcohol Use Questionnaire (AUDIT-C) 1. How often do you have a drink containing alcohol?: Monthly or less 2. How many drinks containing alcohol do you have on a typical day when you are drinking?: 5 or 6 3. How often do you have six or more drinks on one occasion?: Never Total Score: 3 JEWEL-7 AMB Questionnaire JEWEL-7 Date JEWEL - 7 assessed: 06/01/24 Feeling nervous, anxious, or on edge: 1 = Several days Not being able to stop or control worryin = Not at all Worrying too much about different things: 0 = Not at all Trouble relaxin = Not at all Being so restless that it is hard to sit still: 0 = Not at all Becoming easily annoyed or irritable: 1 = Several days Feeling afraid as if something awful might happen: 0 = Not at all Total JEWEL-7 score (0-4 normal; 5-9 mild; 10-14 moderate; 15-21 severe): 2 Source: Developed by Drs. Anival Olson, Ally Arnold, Randy Slaughter and colleagues, with an educational chucky from [employer] JEWEL-7 Assessment Billing JEWEL-7 Assessment Tool: JEWEL-7 Assessment 16733 Review of Systems Const All systems reviewed & are unremarkable except as noted in HPI and below Eyes Reports no additional complaints ENT Reports no additional complaints Card Reports no additional complaints Resp Reports no additional complaints GI Reports no additional complaints Reports no additional complaints Physical exam (Primary Care) Vital Signs: Last Vital Signs Temp 98.0 F 06/01/24 13:52 Pulse 98 06/01/24 13:52 Resp 18 06/01/24 13:52 BP 120/78 06/01/24 13:52 Pulse Ox 98 06/01/24 13:52 Oxygen Delivery Method Room Air 06/01/24 13:52 BMI result Body Mass Index 45.6 Tobacco/Smoking Status: Tobacco use Status Tobacco use date assessed 06/01/24 06/01/24 13:59 Patient Tobacco Use Status Never used Tobacco 06/01/24 13:59 e-Cigarette/Vaping Use Never Used 06/01/24 13:59 PHQ-9: PHQ-9 Score PHQ-9: Total score 5 06/01/24 13:59 Depression Screening Interpretation: Negative Thrive Assessment: Date of Thrive Assessment Date Thrive assessed 06/01/24 06/01/24 13:59 Currently or been in a relationship where the following occur: No concerns reported Const General: no acute distress HENMT Head: Yes normal to inspection Mouth: Normal oral and palatal mucosa present Resp Effort & Inspection: normal respiratory effort Auscultation: clear to auscultation bilaterally Cardio Rhythm: regular rhythm Heart sounds: S1 normal heart sound present and S2 normal heart sound present GI Inspection: Yes normal to inspection Palpation (GI): Soft to palpation Percussion: Yes normal to percussion Auscultation: normal bowel sounds Coding Level of Care Code Est Pt Level 4 (76231) Diagnoses Shoulder pain, right M25.511 DM type 2 (diabetes mellitus, type 2) E11.9 Hypertension I10 Additional Codes JEWEL-7 Assessment Billing - JEWEL-7 Assessment Tool: JEWEL-7 Assessment 17414 ([id number]) PHQ-9 - 00160 - PHQ-9 Billing: Yes ([id number]) Assessment & Plan Assessment & Plan (1) Shoulder pain, right: Code(s): M25.511 - Pain in right shoulder Category: Medical Plan: For chronic shoulder pain patient will be referred to physical therapy (2) DM type 2 (diabetes mellitus, type 2): Comment: Patient could not tolerate metformin, caused a diarrhea Code(s): E11.9 - Type 2 diabetes mellitus without complications Category: Medical Plan: A1c is down to 10 lb 6 from 12.1, ADA diet increase physical activity discussed with the patient Jardiance will be increased to 25 mg and Ozempic to 0.5 mg weekly. Patient will follow-up in 3 months (3) Hypertension: Code(s): I10 - Essential (primary) hypertension Category: Medical Plan: Continue lisinopril Orders: Orders Complete Blood Count Auto Diff 3 Months E11.9 - Type 2 diabetes mellitus without complications, I10 - Essential (primary) hypertension Hemoglobin A1c 3 Months E11.9 - Type 2 diabetes mellitus without complications, I10 - Essential (primary) hypertension PT Evaluation and Treatment Today M25.511 - Pain in right shoulder Comprehensive [place]. Panel Fast 3 Months E11.9 - Type 2 diabetes mellitus without complications, I10 - Essential (primary) hypertension Lipid Panel 3 Months E11.9 - Type 2 diabetes mellitus without complications, I10 - Essential (primary) hypertension Microalbumin, Random (w Creat) 3 Months E11.9 - Type 2 diabetes mellitus without complications, I10 - Essential (primary) hypertension Medications: New empagliflozin (Jardiance) 25 mg PO DAILY 90 tabs 3RF Ozempic (semaglutide) 0.5 mg (0.736 mL) subcut QWEEK 3 mL 2RF NS Discontinued Jardiance (empagliflozin) Discontinued Reason: Doctor's Order 10 mg PO DAILY 90 tabs 0RF NS Ozempic (semaglutide) Discontinued Reason: Doctor's Order 0.25 mg (0.368 mL) subcut QWEEK 9 mL 1RF NS
== END 2024-06-01 14:26 | disposition home or self-care (01) ==
LOC: HO.HMCC 13:52
PROVIDERS: PCP Internal Medicine; Visit Provider Internal Medicine
DX: M25.511 Pain in right shoulder (principal); E11.9 Type 2 diabetes mellitus without complications; I10 Essential (primary) hypertension

== ENCOUNTER → 2024-06-01 13:50 | Outpatient (BNVA) | payer OTHER, SELFPAY | PROVIDERS: PCP Internal Medicine; Visit Provider Internal Medicine | DX: M25.511 Pain in right shoulder (principal); E11.9 Type 2 diabetes mellitus without complications; I10 Essential (primary) hypertension | CPT/HCPCS: 96127; 99212 ==

== ENCOUNTER 2024-07-18 14:33 | Outpatient (AMB) | payer OTHER, SELFPAY ==
[2024-07-18 14:37] VITALS: BP 138/80; PULSE 92; TEMP 36.6; O2SAT 98
--- NOTE | 2024-07-18 14:37 | MHC.OFFWIV ---
Intake Vital Signs 07/18/24 14:37 Height 5 ft 7 in BP 138/80 Blood Pressure Location Lt brachial Position Sitting Pulse 92 Pulse Source Pulse Oximeter Temp 97.8 F Temp Source Oral Pulse Oximetry (%) 98 Intake Visit Reasons: EP itchy LT side with skin patches Patient Tobacco Use Status: Never used Tobacco Allergies pineapple Allergy (Severe, Verified 07/18/24 14:37) SOB throat closing metformin Adverse Reaction (Intermediate, Verified 07/18/24 14:37) Diarrhea enviormental Allergy (Unknown, Uncoded 06/01/24 13:58) rash iodine Allergy (Unknown, Uncoded 06/01/24 13:58) rash lactose Allergy (Unknown, Uncoded 06/01/24 13:58) diarrhea Do you need a note to return to daycare/school/sports/work: No HPI HPI Comments History of Present Illness Details History of Present Illness - The patient is a 54-year-old female presenting with concerns of itching and the development of skin lesions on her lower abdomen. - Currently experiencing severe itching that began a week ago, with a pattern of exacerbation during nighttime sleep. - Developed a hard sore this week on the body, initially perceived as a pimple, it had drained fluid but now its hard and red and hot - Describes multiple dry patches on the legs, correlating with increased scratchiness. - Patient history includes allergies; no prior MRSA infections reported. - Itching impacts overall well-being, particularly during rest. Physical Exam General: Cooperative, healthy appearing, comfortable, no acute distress and well developed Orientation: Patient oriented x3 Limitations: No limitations Head: Normal to inspection Ears: Hearing grossly normal bilaterally Nose: Normal External nose present Face and sinus: Normal facial exam Eyes: Appearance normal, both eyes and all related structures Neck: Normal visual inspection and Yes full ROM Respiratory: Normal respiratory effort and able to speak in complete sentences. Skin: small patches of dry skin on left lower abdomen; 1cm round area of erythema with warmth, indurated, no drainage on left upper abdomen Neuro: Patient oriented x3 Extremities: Normal to inspection [facility] Medical History Obesity Anemia Hypertension DM type 2 (diabetes mellitus, type 2) Heart murmur DJD (degenerative joint disease), lumbosacral Surgical History Hx of hysterectomy History of tonsillectomy History of tubal ligation Family History Father Heart attack Diabetes Hypertension Kidney disease Mother Breast cancer Hypertension Social History Household Members: Spouse and Children 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:: , 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 Housing: House Patient Tobacco Use Status: Never used Tobacco e-Cigarette/Vaping Use: Never Used service: No Current occupational status: employed Cognitive needs: No Hearing needs: No Vision needs: Yes Female Reproductive History Menstrual Age of Menarche: 13 Review of Systems Const All systems reviewed & are unremarkable except as noted in HPI and below Physical Exam Vital Signs: Last Vital Signs Temp 97.8 F 07/18/24 14:37 Pulse 92 07/18/24 14:37 BP 138/80 07/18/24 14:37 Pulse Ox 98 07/18/24 14:37 Assessment & Plan Assessment & Plan (1) Abscess: Code(s): L02.91 - Cutaneous abscess, unspecified Plan: The treatment plan involves addressing the patient's abscess with doxycycline, administered twice a day for seven days, to effectively target skin infections. I have instructed the patient to avoid sun due to the risk of photosensitivity. Patient was informed and verbally consented to the use of an ambient scribe for clinic note documentation during this visit. (2) Eczema: Code(s): L30.9 - Dermatitis, unspecified Qualifiers: Eczema type: unspecified Qualified Code(s): L30.9 - Dermatitis, unspecified Plan: For eczema, I have recommended triamcinolone cream, applied twice daily, to mitigate inflammation and itching. The patient understands this regimen is expected to enhance symptom relief and skin healing. Monitoring for medication side effects and reviewing the treatment efficacy remains critical in managing these conditions going forward. Medications: New doxycycline hyclate 100 mg PO BID 14 tabs 0RF triamcinolone acetonide 0.1% 1 appl topical BID 80 grams 0RF Coding Level of Care Code Est Pt Level 4 (94754) Diagnoses Abscess L02.91 Eczema, unspecified type L30.9 Eczema type: unspecified
== END 2024-07-18 15:16 | disposition home or self-care (01) ==
PROVIDERS: PCP Internal Medicine; Visit Provider Physician Assistant
DX: L02.91 Cutaneous abscess, unspecified (principal); L30.9 Dermatitis, unspecified

== ENCOUNTER → 2024-07-18 14:33 | Outpatient (BNVA) | payer OTHER, SELFPAY | PROVIDERS: PCP Internal Medicine; Visit Provider Physician Assistant | DX: L02.91 Cutaneous abscess, unspecified (principal); L30.9 Dermatitis, unspecified | CPT/HCPCS: 99212 ==

== ENCOUNTER 2024-09-01 14:32 | Outpatient (AMB) | payer OTHER, SELFPAY ==
[2024-09-01 14:42] VITALS: BP 144/86; PULSE 94; TEMP 36.7; O2SAT 98; BMI 46.7
--- NOTE | 2024-09-01 14:42 | AM.OFFWIN_ITS ---
Intake Vital Signs 09/01/24 14:42 Height 5 ft 7 in Weight 298 lb BMI 46.7 BP 144/86 H Blood Pressure Location Lt brachial Position Sitting Pulse 94 Pulse Source Pulse Oximeter Temp 98.0 F Temp Source Oral Pulse Oximetry (%) 98 Oxygen Delivery Method Room Air Intake Visit Reasons: EP UTI? Intake Note: Patient presents stomach cramping, pain in the pelvic area. Some incontinence times 4 days Patient Tobacco Use Status: Never used Tobacco Buckle Sewer Required: No Is last menstrual period known: No Post menopausal: No Patient : No Allergies pineapple Allergy (Severe, Verified 09/01/24 14:55) SOB throat closing metformin Adverse Reaction (Intermediate, Verified 09/01/24 14:55) Diarrhea enviormental Allergy (Unknown, Uncoded 06/01/24 13:58) rash iodine Allergy (Unknown, Uncoded 06/01/24 13:58) rash lactose Allergy (Unknown, Uncoded 06/01/24 13:58) diarrhea Do you need a note to return to daycare/school/sports/work: No HPI HPI Comments History of Present Illness Details History - The patient is a 54-year-old female pr esenting with abdominal and pelvic pain x 4 days. - The pain is located in the lower abdom en and pelvic area, extending to the lower back and around her sides. - The patient reports cloudy urine and u rinary incontinence, with increased frequency and pressure during urination. - Denies a burning sensation during urin ation, but the patient experiences a sensation of incomplete bladder emptying and pressure - The patient has a history of elevated blood glucose levels, which are not well controlled. Physical Exam General: Cooperative, healthy appearing, comfortable, no acute distress and well developed Orientation: Patient oriented x3 Limitations: No limitations Head: Normal to inspection Ears: Hearing grossly normal bilaterally Face and sinus: Normal facial exam Neck: Normal visual inspection and Yes full ROM Respiratory: Normal respiratory effort and able to speak in complete sentences. 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: House Patient Tobacco Use Status: Never used Tobacco e-Cigarette/Vaping Use: Never Used Patient : No service: No Current occupational status: employed Cognitive needs: No Hearing needs: No Vision needs: Yes Female Reproductive History Menstrual Age of Menarche: 13 Review of Systems Const All systems reviewed & are unremarkable except as noted in HPI and below Physical Exam Vital Signs: Last Vital Signs Temp 98.0 F 09/01/24 14:42 Pulse 94 09/01/24 14:42 BP 144/86 H 09/01/24 14:42 Pulse Ox 98 09/01/24 14:42 Oxygen Delivery Method Room Air 09/01/24 14:42 BMI result Body Mass Index 46.7 Results AMB Urinalysis, Automated UA Leukoctes 0 Colby/uL Last Edit by Hope Boyd MA on 09/01/24 15:00 UA Nitrite Negative Last Edit by Hope Boyd MA on 09/01/24 15:00 UA Urobilinogen 0.2 mg/dL Last Edit by Hope Boyd MA on 09/01/24 15:00 UA Protein 0 mg/dL Last Edit by Hope Boyd MA on 09/01/24 15:00 UA pH 5.5 Last Edit by Hope Boyd MA on 09/01/24 15:00 UA Blood 10 Chase/uL Last Edit by Hope Boyd MA on 09/01/24 15:00 UA Specific [place] 1.020 Last Edit by Hope Boyd MA on 09/01/24 15:00 UA Ketone Negative Last Edit by Hope Boyd MA on 09/01/24 15:00 UA Bilirubin 0 mg/dL Last Edit by Hope Boyd MA on 09/01/24 15:00 UA Glucose 1000 mg/dL Last Edit by Hope Boyd MA on 09/01/24 15:00 Results Reviewed Results Reviewed: Laboratory Last Values Urine pH (Auto) 5.5 09/01/24 14:46 Specific [place] (Auto) 1.020 09/01/24 14:46 Urine Protein (Auto) 0 mg/dL 09/01/24 14:46 Glucose (UA)(Auto) 1000 mg/dL 09/01/24 14:46 Urine Ketones (Auto) Negative 09/01/24 14:46 Urine Blood (Auto) 10 Chase/uL 09/01/24 14:46 Urine Nitrite (Auto) Negative 09/01/24 14:46 Urine Bilirubin (Auto) 0 mg/dL 09/01/24 14:46 Urine Urobilinogen (Auto) 0.2 mg/dL 09/01/24 14:46 Leukocyte Esterase (Auto) 0 [place]/uL 09/01/24 14:46 Assessment & Plan Assessment & Plan (1) UTI (urinary tract infection): Code(s): N39.0 - Urinary tract infection, site not specified Qualifiers: Hematuria presence: with hematuria Urinary tract infection type: acute cystitis Qualified Code(s): N30.01 - Acute cystitis with hematuria Plan: Patient was informed and verbally consented to the use of an ambient scribe for clinic note documentation during this visit. 1. Urinary Tract Infection - UA negative for nitrites, no leuks, + blood and 3+ glucose - Initiated treatment with cefuroxime, an antibiotic, despite the absence of confirmed infection. - Urine culture was sent to confirm the presence of infection and ensure appropriate antibiotic coverage. 2. Possible Nephrolithiasis - Consideration of nephrolithiasis due to hematuria and abdominal pain. - can you patient that if her pain gets worse in the back and around her flanks or she develops a fever or she is not getting better with the antibiotic that she should be evaluated in the emergency department for kidney stones. 3. Hyperglycemia - Discussed the possibility of increased urination due to elevated blood glucose levels. - Advised monitoring and management of blood glucose levels to prevent further complications. Orders: Orders AMB Urinalysis Automated Today Z13.9 - Encounter for screening, unspecified Medications: New cefuroxime axetil 500 mg PO Q12H 10 tabs 0RF Coding Level of Care Code Est Pt Level 3 (78905) Diagnoses Acute cystitis with hematuria N30.01 Hematuria presence: with hematuria Urinary tract infection type: acute cystitis
--- OUTSIDE RECORDS SUMMARY | 2024-09-01 14:53 | XMS_ITS | Patient Health Record ---
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 Name Role Phone Addie PALACIOS, Shelley Primary Care Provider Unavail able Isa Chamberlain Unavailable [phone] Allergies Allergen (clinical drug ingredient) Drug/Non Drug Allergy documented on EMR Reaction Allergy Type Onset Date Status Iodine rash Drug Allergy Active Reason For Referral No Information Medications Medication SIG (Take, Route, Fr equency, Duration) Notes Start Date End Date Status Cephalexin 500 MG 1 tablet Orally Twic e a day; Duration: 10 day(s) Active Keflex 500 MG 1 capsule Orally renetta ry 12 hrs; Duration: 14 days 08/15/2015 Not-Taking Problems No Known Problems Plan Of Treatment Pending Test Test Name Order Date 25096 I&D ABSCESS- SIMPLE,SINGLE 016 [id number] I&D ABSCESS- SIMPLE,SINGLE 016 Insurance Providers Payer Name Payer Address Payer Phone Subscriber Number Group Number Insured Name Patient Relationship to Insured Coverage Start Date Coverage End Date [employer] [address] [address] [place] [phone] [id number] [phone] Rosaura Henry Self - patient is the insured Medical (General) History Medical History History ICD Code Anemia Back,Hip,and Knee pain Chicken pox
== END 2024-09-01 15:17 | disposition home or self-care (01) ==
PROVIDERS: PCP Internal Medicine; Visit Provider Physician Assistant
DX: N30.01 Acute cystitis with hematuria (principal); Z13.9 Encounter for screening, unspecified

== ENCOUNTER → 2024-09-01 14:32 | Outpatient (BNVA) | payer OTHER, SELFPAY | PROVIDERS: PCP Internal Medicine; Visit Provider Physician Assistant | DX: N30.01 Acute cystitis with hematuria (principal) | CPT/HCPCS: 81003; 99212 ==